=== PATIENT | male | born 1945 | race Two or more races ===

== ENCOUNTER 2022-11-06 23:22 | Inpatient (IN) | payer OTHER ==
[~2022-11-06] VITALS: Ht 177.8 cm; Wt 95.3 kg
--- NOTE | 2022-11-06 23:30 | NUR ---
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 Pain at right and left lumbar area radiating to back rated as 8/10.
--- NOTE | 2022-11-06 23:59 | NUR ---
Unable to provide urine sample at the moment.
--- NOTE | 2022-11-07 00:02 | NUR ---
Phleb at bedside to draw to blood.
[2022-11-07 00:18] LABS: BASOPHILS # (AUTO) 0.1 K/uL (0.0-0.2); BASOPHILS % (AUTO) 0.5 % (0.0-2.0); EOSINOPHILS % (AUTO) 16.4 % (0.0-6.0); HEMATOCRIT 53 % (39-51); HEMOGLOBIN 16.9 g/dL (13.5-17.5); LYMPHOCYTES # (AUTO) 0.7 K/uL (0.8-4.8); LYMPHOCYTES % (AUTO) 3.8 % (20.0-44.0); MEAN CORPUSCULAR HGB CONC 32 g/dl (31.0-36.0); MEAN CORPUSCULAR VOLUME 95 fL (80-96); MONOCYTES # (AUTO) 0.3 K/uL (0.1-1.30); MONOCYTES % (AUTO) 1.5 % (2.0-12.0); NEUTROPHILS # (AUTO) 14.4 K/uL (1.8-8.9); NEUTROPHILS % (AUTO) 77.8 % (43.0-81.0); PLATELET COUNT (AUTO) 394 K/uL (150-450); RED BLOOD CELL COUNT(AUTO) 5.58 MIL/uL (4.5-6.0); WHITE BLOOD COUNT (AUTO) 18.5 K/uL (4.3-11.0)
[2022-11-07 00:26] LABS: CALCIUM, SERUM 8.7 mg/dL (8.5-10.1); CARBON DIOXIDE 26 mmol/L (21-32); CHLORIDE 101 mmol/L (98-107); CREATININE 2.2 mg/dL (0.6-1.3); GLUCOSE 230 mg/dL (74-106); POTASSIUM 4.8 mmol/L (3.5-5.1); SODIUM SERUM 136 mmol/L (136-145); UREA NITROGEN, BLOOD 42 mg/dL (7-18)
[2022-11-07 00:33] LABS: ALANINE AMINOTRANSFERASE 158 U/L (12-78); ALBUMIN 3.2 g/dL (3.4-5.0); ALKALINE PHOSPHATASE 126 U/L (46-116); ASPARTATE AMINOTRANSFERASE 273 U/L (15-37); BILIRUBIN,DIRECT 1.1 mg/dL (0.0-0.2); BILIRUBIN,TOTAL 1.5 mg/dL (0.2-1.0); LIPASE 371 U/L (73-393)
--- NOTE | 2022-11-07 04:50 | NUR ---
bladder scan reading: >999. result relayed to to . ordered to insert avina cath.
[2022-11-07] MEDS ORDERED: LIDOCAINE 2% JEL UROJET 10 ML MM ONE (04:54)
--- NOTE | 2022-11-07 05:12 | NUR ---
urine output noted @ 1800ml. md aware
--- NOTE | 2022-11-07 05:12 | NUR ---
urine collected and sent to lab
[2022-11-07 05:46] LABS: BILIRUBIN,URINE NEGATIVE (NEGATIVE); COLOR,URINE YELLOW (YELLOW); LEUKOCYTE ESTERASE ,URINE 1+ (NEGATIVE); NITRITE, URINE NEGATIVE (NEGATIVE); PROTEIN,URINE NEGATIVE (NEGATIVE); UGLUCOSE NEGATIVE (NEGATIVE)
[2022-11-07 05:51] LABS: BACTERIA,URINE Few /HPF (None Seen); SQUAMOUS EPITHELIAL CELL,UR Few /HPF (None Seen)
[2022-11-07] MEDS ORDERED: CEFTRIAXONE 1GM BAG (ER ONLY) 50 ML IV ONE (06:11)
[2022-11-07] MEDS ORDERED: CEFTRIAXONE 1GM BAG (ER ONLY) 1 GM/50 ML PIGGYBACK IV ONE (06:30)
--- NOTE | 2022-11-07 06:32 | NUR ---
covid swab done and sent to lab
--- NOTE | 2022-11-07 06:39 | NUR ---
Saline Lock at R hand G20.
--- NOTE | 2022-11-07 06:40 | NUR ---
Blood culture specimen collected and sent to lab.
--- NOTE | 2022-11-07 07:15 | NUR ---
I INFORMED THE PT ABOUT ADMISSION STATUS TO THE HOSPITAL. PT VERBALIZES UNDERSTANDING. PT DENIES PAIN. PT IS CONNECTED TO MONITOR. SAFETY PRECAUTION IN PLACE.
--- NOTE | 2022-11-07 08:24 | NUR ---
BED 304-2. ADMITTING MADE AWARE.
--- NOTE | 2022-11-07 08:32 | NUR ---
REPORT GIVEN TO MONTSE ROSE FOR CONTINUITY OF CARE.
--- NOTE | 2022-11-07 08:43 | NUR ---
PT TRANSFERRED TO 3RD FLOOR VIA [facility].
[2022-11-07] MEDS ORDERED: OXYC15TA2 PO ×2 (09:17)
[2022-11-07] MEDS ORDERED: DULO60CA64 PO (09:17)
[2022-11-07] MEDS ORDERED: ATEN50TA PO (09:17)
[2022-11-07] MEDS ORDERED: SIMV-49 PO (09:17)
[2022-11-07] MEDS ORDERED: HYDR12.55 PO (09:17)
[2022-11-07] MEDS ORDERED: ESCI10TA PO (09:17)
[2022-11-07] MEDS ORDERED: GABA300C PO ×2 (09:17)
[2022-11-07] MEDS ORDERED: GLIP5TAB13 PO (09:17)
[2022-11-07 09:18] VITALS: BP 133/72
[2022-11-07] MEDS ORDERED: CLOP75TA15 PO (09:18)
--- NOTE | 2022-11-07 09:45 | NUR ---
RN ADMITTING NOTE ADMITTED THIS 77 Y/O MALE PATIENT FROM ER, CAME TO THE UNIT @0850, TRANSPORTED VIA GURNEY ACCOMPANIED BY ER STAFF HUBER. PATIENT IS AWAKE, A/O X4, VERBALLY RESPONSIVE AND ABLE TO MAKE NEEDS KNOWN. NO SIGNS OF ACUTE DISTRESS NOTED. ON ROOM AIR TOLERATING WELL. DENIES DIFFICULTY BREATHING, BREATHING IS EVEN AND UNLABORED. DENIES ANY ABDOMINAL PAIN AT THIS TIME. NOTED WITH F/C INTACT, DRAINING CLEAR PAULINA COLORED URINE VIA GRAVITY. VITAL SIGNS TAKEN,STABLE. BODY ASSESSMENT DONE. NOTED WITH SCAB ON LOWER BACK, BLANCHABLE REDNESS ON SACRAL AREA, REDNESS ON RIGHT HEEL AND DRYNESS ON BILATERAL FEET. ROUTINE ADMISSION CARE PROVIDED. ORIENTED PATIENT TO ROOM, ROOMMATE AND STAFF. SAFETY MEASURE IN PLACE, BED IN LOW AND LOCKED POSITION, SIDE RAILS UP X2, CALL LIGHT PLACED WITHIN EASY REACH. WILL CONTINUE TO MONITOR PATIENT.
[2022-11-07] MEDS ORDERED: MAGNESIUM HYDROXIDE 30 ML UDC PO PRN (10:30)
[2022-11-07] MEDS ORDERED: GABAPENTIN 300 MG CAPSULE PO PRN (10:30)
[2022-11-07] MEDS ORDERED: MAG HYDROX/AL HYDROX/SIMETH 30 ML UDC PO PRN (10:30)
[2022-11-07] MEDS ORDERED: HYDROMORPHONE INJ 2 MG/ML DISP.SYRIN IV PRN (10:30)
[2022-11-07] MEDS ORDERED: Z GUARD REMEDY 4 OZ OINT TP PRN (10:30)
[2022-11-07] MEDS: IV NS 0.9% 1,000 ML IV PRN (11:16)
[2022-11-07] MEDS: CEFTRIAXONE 1 G in IV D5W 50 ML IV SCH (11:21)
[2022-11-07] MEDS ORDERED: oxyCODONE HCL SR 10MG TAB.SR.12H PO SCH (11:21)
[2022-11-07] MEDS: ENOXAPARIN SODIUM 30 MG/0.3 ML DISP.SYRIN SQ SCH (11:26)
[2022-11-07] MEDS: GABAPENTIN 300 MG CAPSULE PO SCH ×2 (12:09→16:42)
[2022-11-07] MEDS: ATENOLOL 50 MG TABLET PO SCH (16:42)
[2022-11-07 18:11] VITALS: BP 109/59
--- NOTE | 2022-11-07 18:45 | NUR ---
RN CLOSING NOTE PATIENT RESTING IN BED, NO SIGNS OF ACUTE DISTRESS NOTED. REMAINS STABLE ON ROOM AIR. NO SOB NOTED, BREATHING EVEN AND UNLABORED. IV ACCESS ON RIGHT HAND #20G, INTACT AND PATENT, WITH NS @ 75ML/HR INFUSING WELL. F/C INTACT, DRAINING CLEAR PAULINA URINE. F/C CARE PROVIDED. ALL DUE MEDS GIVEN. SAFETY MEASURE MAINTAINED. BED IN LOW AND LOCKED POSITION, SIDE RAILS UP X2, CALL LIGHT PLACED WITHIN EASY REACH. WILL CONTINUE TO MONITOR PATIENT.
--- NOTE | 2022-11-07 19:50 | NUR ---
RN OPENING NOTE PATIENT ASLEEP IN BED. AT BEDSIDE. A/OX4. NO S/S OF DISTRESS, BREATHING WITHOUT DIFFICULTY ON 2L NC. LAC #18 SL INTACT AND PATENT. TELE READS SR 72. SAFETY MEASURES IN PLACE: BED LOCKED AND IN LOWEST POSITION, SEMI-NICHOLSON'S, RAILS UP X2, CALL PINEDA WITHIN REACH. WILL CONTINUE TO MONITOR PATIENT.
--- NOTE | 2022-11-07 19:54 | NUR ---
RN OPENING NOTE PATIENT AWAKE IN BED. A/OX4. NO S/S OF DISTRESS, BREATHING WITHOUT DIFFICULTY ON ROOM AIR. R-HAND #20 INTACT AND PATENT W/ NS 75ML/HR. SAFETY MEASURES IN PLACE: BED LOCKED AND IN LOWEST POSITION, SEMI-NICHOLSON'S, RAILS UP X2, CALL PINEDA WITHIN REACH. WILL CONTINUE TO MONITOR PATIENT.
[2022-11-07 20:00] VITALS: BP 132/61
[2022-11-07] MEDS: oxyCODONE HCL SR 10MG TAB.SR.12H PO SCH (21:23)
[2022-11-08] MEDS: IV NS 0.9% 1,000 ML IV PRN ×2 (03:21→23:45)
[2022-11-08 05:43] LABS: BASOPHILS % (AUTO) 0.2 % (0.0-2.0); EOSINOPHILS % (AUTO) 1.8 % (0.0-6.0); HEMATOCRIT 46 % (39-51); LYMPHOCYTES # (AUTO) 1.2 K/uL (0.8-4.8); LYMPHOCYTES % (AUTO) 9.3 % (20.0-44.0); MEAN CORPUSCULAR HGB CONC 33 g/dl (31.0-36.0); MEAN CORPUSCULAR VOLUME 93 fL (80-96); MONOCYTES # (AUTO) 2.3 K/uL (0.1-1.30); MONOCYTES % (AUTO) 17.6 % (2.0-12.0); NEUTROPHILS # (AUTO) 9.1 K/uL (1.8-8.9); NEUTROPHILS % (AUTO) 71.1 % (43.0-81.0); PLATELET COUNT (AUTO) 325 K/uL (150-450); RED BLOOD CELL COUNT(AUTO) 4.95 MIL/uL (4.5-6.0); WHITE BLOOD COUNT (AUTO) 12.8 K/uL (4.3-11.0)
[2022-11-08 06:13] LABS: CALCIUM, SERUM 8.5 mg/dL (8.5-10.1); CARBON DIOXIDE 28 mmol/L (21-32); CHLORIDE 104 mmol/L (98-107); CREATININE 1.8 mg/dL (0.6-1.3); GLUCOSE 130 mg/dL (74-106); PHOSPHORUS 2.9 mg/dL (2.5-4.9); POTASSIUM 3.6 mmol/L (3.5-5.1); SODIUM SERUM 138 mmol/L (136-145); UREA NITROGEN, BLOOD 32 mg/dL (7-18)
[2022-11-08 06:46] LABS: MAGNESIUM 1.7 mg/dL (1.8-2.4)
[2022-11-08 07:00] VITALS: BP_SYST 105; BP_SYST 146; BP_DIAS 59; BP_DIAS 68
--- NOTE | 2022-11-08 07:01 | NUR ---
RN CLOSING NOTE PATIENT ASLEEP IN BED. A/OX4. NO S/S OF DISTRESS, BREATHING WITHOUT DIFFICULTY ON ROOM AIR. R-HAND #20 INTACT AND PATENT W/ NS 75ML/HR. SAFETY MEASURES IN PLACE: BED LOCKED AND AT LOWEST POSITION, LOW-FOWLERS, RAILS UP X2, CALL PINEDA WITHIN REACH. WILL ENDORSE TO NEXT SHIFT FOR MARYLOU.
--- NOTE | 2022-11-08 07:15 | NUR ---
MS RN OPENING NOTES RECEIVED PATIENT AWAKE IN BED, ON ROOM AIR. A/Ox4, ABLE TO MAKE NEEDS KNOWN. NO S/S OF RESPIRATORY DISTRESS. PATIENT HAS NO C/O OF PAIN OR DISCOMFORT. PATIENT IV ACCESS R HAND #20G RUNNING NS @75 ML/HR. INTACT AND PATENT. PATIENT HAS FC DRAINING YELLOW URINE. AMB WITH ASSIST. CONTINENT. SKIN ISSUES: LOWER BACK SCAB, SACRAL REDNESS, R HEEL REDNESS. SAFETY MEASURES IN PLACE: BED LOCKED AND IN LOWEST POSITION, SIDE RAILS UPx2, HOB ELEVATED, CALL LIGHT WITHIN REACH. WILL CONTINUE TO MONITOR.
[2022-11-08] MEDS: GABAPENTIN 300 MG CAPSULE PO SCH ×3 (08:42→16:15)
[2022-11-08] MEDS: HYDROCHLOROTHIAZIDE 25 MG TABLET PO SCH (08:43)
[2022-11-08] MEDS: ESCITALOPRAM OXALATE (10 MG) 10 MG TABLET PO SCH (08:43)
[2022-11-08] MEDS: oxyCODONE HCL SR 10MG TAB.SR.12H PO SCH ×3 (08:43→20:32)
[2022-11-08] MEDS: SIMVASTATIN 20 MG TABLET PO SCH (08:43)
[2022-11-08] MEDS: CLOPIDOGREL BISULFATE 75 MG TABLET PO SCH (08:44)
[2022-11-08] MEDS: ATENOLOL 50 MG TABLET PO SCH ×2 (08:44→16:15)
[2022-11-08] MEDS: DULOXETINE HCL 30 MG CAPSULE.DR PO SCH (08:44)
[2022-11-08] MEDS: ENOXAPARIN SODIUM 30 MG/0.3 ML DISP.SYRIN SQ SCH (10:41)
[2022-11-08] MEDS: CEFTRIAXONE 1 G in IV D5W 50 ML IV SCH (10:42)
[2022-11-08 11:25] LABS: EOSINOPHILS % (MANUAL) 2 % (0-4); LYMPHOCYTES % (MANUAL) 8 % (16-48); MONOCYTES % (MANUAL) 20 % (0-11.0); NEUTROPHILS % (MANUAL) 70 (42-76)
[2022-11-08] MEDS ORDERED: MAGNESIUM OXIDE 400 MG TABLET PO ONE (12:00)
--- NOTE | 2022-11-08 13:14 | NUR ---
RN NOTES PATIENT GIVEN ROUTINE PAIN MEDICATION, OCCASIONAL GRIMACE OF PAIN NOTED WHEN MOVING, HOWEVER, PATIENT SAYS PAIN IS MANAGEABLE. ABLE TO AMBULATE WITH STANDBY ASSIST TO THE BATHROOM AND HAVE A BOWEL MOVEMENT. WILL CONTINUE TO MONITOR.
--- NOTE | 2022-11-08 15:40 | NUR ---
RN NOTES PATIENT R HAND IV INFILTRATED, REMOVED AND NEW LINE STARTED ON L FA #20G, INTACT AND PATENT RUNNING NS @75 ML/HR. WILL CONTINUE TO MONITOR.
[2022-11-08 16:00] VITALS: BP 126/69
--- NOTE | 2022-11-08 18:46 | NUR ---
MS RN CLOSING NOTES PATIENT AWAKE IN BED, STABLE ON ROOM AIR. A/Ox4, ABLE TO MAKE NEEDS KNOWN. NO S/S OF RESPIRATORY DISTRESS. PATIENT HAS NO C/O OF PAIN OR DISCOMFORT. PATIENT IV ACCESS LFA #20G RUNNING NS @75 ML/HR. INTACT AND PATENT. PATIENT HAS FC DRAINING YELLOW URINE. AMB WITH ASSIST. CONTINENT. SKIN ISSUES: LOWER BACK SCAB, SACRAL REDNESS, R HEEL REDNESS. ALL PRESCRIBED MEDICATION ADMINISTERED. SAFETY MEASURES MAINTAINED: BED LOCKED AND IN LOWEST POSITION, SIDE RAILS UPx2, HOB ELEVATED, CALL LIGHT WITHIN REACH. WILL ENDORSE TO NEXT SHIFT ANY MARYLOU.
--- NOTE | 2022-11-08 19:35 | NUR ---
MS RN OPENING NOTES - RECEIVED PATIENT IN BED SLEEPING, EASY TO AROUSE. A/O X4. BREATHING EVEN AND NON-LABORED ON ROOM AIR. NOT IN APPARENT DISTRESS. DENIES PAIN/SOB/ AT THIS TIME. HAS LEFT FOREARM IV ACCESS #20G WITH NS RUNNING AT 75 ML/HR. NO S/S OF INFILTRATION NOTED. HAS INDWELLING KING CATHETER DRAINING CLEAR PAULINA URINE TO BAG BY GRAVITY. SAFETY PRECAUTIONS IN PLACE: BED LOCKED AND IN LOW POSITION, SIDE RAILS UP X2, CALL LIGHT WITHIN REACH. WILL CONTINUE POC.
[2022-11-08 20:00] VITALS: BP 114/53
[2022-11-08 20:58] VITALS: BP 114/53
[2022-11-09 06:04] LABS: BASOPHILS % (AUTO) 0.3 % (0.0-2.0); EOSINOPHILS % (AUTO) 2.7 % (0.0-6.0); HEMATOCRIT 45 % (39-51); HEMOGLOBIN 14.7 g/dL (13.5-17.5); LYMPHOCYTES # (AUTO) 1.7 K/uL (0.8-4.8); LYMPHOCYTES % (AUTO) 16.1 % (20.0-44.0); MEAN CORPUSCULAR HGB CONC 32 g/dl (31.0-36.0); MEAN CORPUSCULAR VOLUME 93 fL (80-96); MONOCYTES # (AUTO) 1.4 K/uL (0.1-1.30); MONOCYTES % (AUTO) 13.3 % (2.0-12.0); NEUTROPHILS # (AUTO) 7.3 K/uL (1.8-8.9); NEUTROPHILS % (AUTO) 67.6 % (43.0-81.0); PLATELET COUNT (AUTO) 335 K/uL (150-450); RED BLOOD CELL COUNT(AUTO) 4.84 MIL/uL (4.5-6.0); WHITE BLOOD COUNT (AUTO) 10.7 K/uL (4.3-11.0)
[2022-11-09 06:26] LABS: CALCIUM, SERUM 8.9 mg/dL (8.5-10.1); CARBON DIOXIDE 27 mmol/L (21-32); CHLORIDE 101 mmol/L (98-107); CREATININE 1.7 mg/dL (0.6-1.3); GLUCOSE 130 mg/dL (74-106); MAGNESIUM 1.8 mg/dL (1.8-2.4); POTASSIUM 3.6 mmol/L (3.5-5.1); SODIUM SERUM 136 mmol/L (136-145); UREA NITROGEN, BLOOD 30 mg/dL (7-18)
[2022-11-09 07:00] VITALS: BP 123/69
--- NOTE | 2022-11-09 07:04 | NUR ---
MS RN CLOSING NOTES - PATIENT AWAKE, ANXIOUS AND AGITATED BECAUSE HE WAS NOT ABLE TO HAVE A GOOD SLEEP LAST NIGHT. ABLE TO VERBALIZE NEEDS. NO RESPIRATORY OR CARDIAC DISTRESS. NO SOB OR NOTED, TOLERATING ROOM AIR WELL. AFEBRILE. NO C/O PAIN AT THIS TIME. LEFT FOREARM IV ACCESS #20G INTACT, PATENT AND FLUSHING. FC DRAINING CLEAR ORANGE URINE. ALL DUE MEDS GIVEN AND NEEDS ATTENDED. SAFETY PRECAUTIONS MAINTAINED. WILL ENDORSE TO NEXT SHIFT FOR MARYLOU.
[2022-11-09] MEDS: IV NS 0.9% 1,000 ML IV PRN (07:06)
--- NOTE | 2022-11-09 07:28 | NUR ---
RN OPENING NOTE RECEIVED PATIENT IN BED AWAKE, A/O X4, VERBALLY RESPONSIVE, NO SIGNS OF ACUTE DISTRESS NOTED. PATIENT C/O NOT BEING ABLE TO SLEEP AND JUST WANT TO SLEEP RIGHT NOW. IV ACCESS ON LEFT FORE ARM #20G, INTACT AND PATENT. WITH F/C DRAINING ORANGE COLOR URINE VIA GRAVITY. NO C/O PAIN AT THIS TIME. SAFETY MEASURE IN PLACE. BED IN LOW AND LOCKED POSITION, SIDE RAILS UP X2, CALL LIGHT PLACED WITHIN EASY REACH. WILL CONTINUE TO MONITOR PATIENT.
[2022-11-09] MEDS: DULOXETINE HCL 30 MG CAPSULE.DR PO SCH (08:23)
[2022-11-09] MEDS: oxyCODONE HCL SR 10MG TAB.SR.12H PO SCH ×3 (08:23→20:20)
[2022-11-09] MEDS: ATENOLOL 50 MG TABLET PO SCH ×2 (08:24→16:46)
[2022-11-09] MEDS: GABAPENTIN 300 MG CAPSULE PO SCH ×3 (08:24→16:45)
[2022-11-09] MEDS: CLOPIDOGREL BISULFATE 75 MG TABLET PO SCH (08:25)
[2022-11-09] MEDS: HYDROCHLOROTHIAZIDE 25 MG TABLET PO SCH (08:25)
[2022-11-09] MEDS: ESCITALOPRAM OXALATE (10 MG) 10 MG TABLET PO SCH (08:25)
[2022-11-09] MEDS: SIMVASTATIN 20 MG TABLET PO SCH (08:25)
[2022-11-09] MEDS: CEFTRIAXONE 1 G in IV D5W 50 ML IV SCH (10:36)
[2022-11-09] MEDS: ENOXAPARIN SODIUM 30 MG/0.3 ML DISP.SYRIN SQ SCH (10:38)
[2022-11-09 16:00] VITALS: BP 115/69
--- NOTE | 2022-11-09 18:44 | NUR ---
RN CLOSING NOTE PATIENT RESTING IN BED, A/O X4, VERBALLY RESPONSIVE, NO SIGNS OF ACUTE DISTRESS NOTED. IV ACCESS ON LEFT FOREARM #20G, INTACT AND PATENT, WITH NS @75 ML/HR RUNNING. WITH F/C DRAINING CLEAR ORANGE COLORED URINE VIA GRAVITY. NO C/O PAIN AT THIS TIME. ALL DUE MEDS GIVEN, TOLERATED WELL. SAFETY MEASURE MAINTAINED. BED IN LOW AND LOCKED POSITION, SIDE RAILS UP X2, CALL LIGHT PLACED WITHIN EASY REACH. WILL ENDORSE TO NEXT SHIFT FOR CONTINUITY OF CARE.
--- NOTE | 2022-11-09 19:42 | NUR ---
MS RN OPENING NOTES - RECEIVED PATIENT RESTING IN BED. A/O X4. BREATHING EVEN AND NON-LABORED ON ROOM AIR. NOT IN APPARENT DISTRESS. NO C/O PAIN OR DISCOMFORT AT THIS TIME. HAS THE FF IV ACCESS: LEFT FOREARM #20G AND SALINE LOCKED, AND RIGHT FOREARM #20G WITH NS RUNNING AT 75 ML/HR. NO S/S OF INFILTRATION NOTED. HAS INDWELLING KING CATHETER DRAINING CLEAR PAULINA URINE TO BAG BY GRAVITY. SAFETY PRECAUTIONS IN PLACE: BED LOCKED AND IN LOW POSITION, SIDE RAILS UP X2, CALL LIGHT WITHIN REACH. WILL CONTINUE POC.
[2022-11-09 20:23] VITALS: BP 132/72
[2022-11-09 20:32] VITALS: BP 132/72
[2022-11-10] MEDS: IV NS 0.9% 1,000 ML IV PRN ×2 (05:27→18:17)
--- NOTE | 2022-11-10 06:38 | NUR ---
MS RN CLOSING NOTES - PATIENT AWAKE IN BED, ABLE TO VERBALIZE NEEDS. NO ACUTE DISTRESS AND SLEPT THROUGHOUT THE NIGHT. NO SOB OR NOTED. AFEBRILE. DENIES PAIN AT THIS TIME. RIGHT FOREARM IV ACCESS #20G INTACT, PATENT AND FLUSHING. BED BATH AND ORAL CARE RENDERED. IFC DRAINING CLEAR DARK YELLOW URINE. NO SEDIMENTS OR HEMATURIA NOTED. ENCOURAGED INCREASE FLUID INTAKE. ALL DUE MEDS GIVEN AND NEEDS ATTENDED. PATIENT IS A LITTLE ANXIOUS ABOUT HIS HEALTH AND HOPEFUL THAT HE LIVES. EXPLAINED DISCHARGE PLANNING, VERBALIZED UNDERSTANDING. SAFETY PRECAUTIONS MAINTAINED. WILL ENDORSE TO NEXT SHIFT FOR MARYLOU.
[2022-11-10 07:00] VITALS: BP 136/74
--- NOTE | 2022-11-10 07:35 | NUR ---
MS RN OPENING NOTES - RECEIVED PATIENT IN BED AWAKE . A/O X4. ON ROOM AIR WITH NO SOB OR DISTRESS NOTED . NO C/O PAIN OR DISCOMFORT AT THIS TIME. HAS THE FF IV ACCESS: IV ACCESS RIGHT FOREARM #20G WITH NS RUNNING AT 75 ML/HR . HAS INDWELLING KING CATHETER DRAINING CLEAR PAULINA URINE TO BAG BY GRAVITY. SAFETY PRECAUTIONS IN PLACE: BED LOCKED AND IN LOW POSITION, SIDE RAILS UP X2, CALL LIGHT WITHIN REACH. WILL CONTINUE POC.
[2022-11-10] MEDS ORDERED: CEFT1FRO2 IV (08:35)
[2022-11-10] MEDS: DULOXETINE HCL 30 MG CAPSULE.DR PO SCH (08:40)
[2022-11-10] MEDS: GABAPENTIN 300 MG CAPSULE PO SCH ×3 (08:40→17:15)
[2022-11-10] MEDS: HYDROCHLOROTHIAZIDE 25 MG TABLET PO SCH (08:41)
[2022-11-10] MEDS: ESCITALOPRAM OXALATE (10 MG) 10 MG TABLET PO SCH (08:41)
[2022-11-10] MEDS: CLOPIDOGREL BISULFATE 75 MG TABLET PO SCH (08:42)
[2022-11-10] MEDS: ATENOLOL 50 MG TABLET PO SCH ×2 (08:42→17:16)
[2022-11-10] MEDS: oxyCODONE HCL SR 10MG TAB.SR.12H PO SCH ×3 (08:42→21:02)
[2022-11-10] MEDS: SIMVASTATIN 20 MG TABLET PO SCH (08:42)
[2022-11-10 09:02] LABS: BASOPHILS # (AUTO) 0.1 K/uL (0.0-0.2); BASOPHILS % (AUTO) 0.5 % (0.0-2.0); EOSINOPHILS % (AUTO) 1.9 % (0.0-6.0); HEMATOCRIT 46 % (39-51); HEMOGLOBIN 15.3 g/dL (13.5-17.5); LYMPHOCYTES # (AUTO) 1.7 K/uL (0.8-4.8); LYMPHOCYTES % (AUTO) 16.6 % (20.0-44.0); MEAN CORPUSCULAR HGB CONC 33 g/dl (31.0-36.0); MEAN CORPUSCULAR VOLUME 93 fL (80-96); MONOCYTES # (AUTO) 1.4 K/uL (0.1-1.30); MONOCYTES % (AUTO) 12.9 % (2.0-12.0); NEUTROPHILS # (AUTO) 7.2 K/uL (1.8-8.9); NEUTROPHILS % (AUTO) 68.1 % (43.0-81.0); PLATELET COUNT (AUTO) 341 K/uL (150-450); RED BLOOD CELL COUNT(AUTO) 4.98 MIL/uL (4.5-6.0); WHITE BLOOD COUNT (AUTO) 10.5 K/uL (4.3-11.0)
[2022-11-10] MEDS: ENOXAPARIN SODIUM 30 MG/0.3 ML DISP.SYRIN SQ SCH (10:57)
[2022-11-10] MEDS: CEFTRIAXONE 1 G in IV D5W 50 ML IV SCH (10:58)
[2022-11-10 11:38] LABS: CALCIUM, SERUM 8.7 mg/dL (8.5-10.1); CARBON DIOXIDE 23 mmol/L (21-32); CHLORIDE 101 mmol/L (98-107); CREATININE 1.6 mg/dL (0.6-1.3); GLUCOSE 166 mg/dL (74-106); POTASSIUM 3.7 mmol/L (3.5-5.1); SODIUM SERUM 135 mmol/L (136-145); UREA NITROGEN, BLOOD 27 mg/dL (7-18)
[2022-11-10 16:00] VITALS: BP 91/63
--- NOTE | 2022-11-10 18:22 | NUR ---
MS RN CLOSING NOTES - PATIENT IN BED AWAKE . A/O X4. ON ROOM AIR WITH NO SOB OR DISTRESS NOTED . NO C/O PAIN OR DISCOMFORT AT THIS TIME. IV ACCESS RIGHT FOREARM #20G WITH NS RUNNING AT 75 ML/HR . PATIENT FOR DISCHARGE TO SNF AND WAITING FOR AUTH AND WAS CANCELLED AND PLAN IS TO GO HOME AND INSURANCE WILL ARRANGE HOME HEALTH FOR FOLOW UP AND IV ATB , KING CATHETER REMOVED , ALL DUE MEDS GIVEN AND ROUTINE PAIN MEDS GIVEN AND WITH HELP . SAFETY PRECAUTIONS IN PLACE: BED LOCKED AND IN LOW POSITION, SIDE RAILS UP X2, CALL LIGHT WITHIN REACH AND ENDORSED TO NEXT SHIFT
--- NOTE | 2022-11-10 19:26 | NUR ---
RN OPENING NOTES; RECEIVED PT IN BED AAOX4 ABLE TO MAKE NEEDS KNOWN,ON RM AIR ARTEMIO WELL SATTING 98%,NO SIGN SOB/DISTRESS NOTED,NO COMPLAIN OF PAIN/DISCOMFORT AT THIS TIME,IV ACCESS RFA 20G WITH NS 75ML/HR INFUSING WELL,SAFETY MEASURE IN PLACE,CALL LIGHT WITHIN REACH,WILL CONTINUE TO MONITOR.
[2022-11-10 20:00] VITALS: BP 116/55
[2022-11-11 05:45] LABS: BASOPHILS # (AUTO) 0.1 K/uL (0.0-0.2); BASOPHILS % (AUTO) 0.5 % (0.0-2.0); EOSINOPHILS % (AUTO) 2.7 % (0.0-6.0); HEMATOCRIT 51 % (39-51); HEMOGLOBIN 16.1 g/dL (13.5-17.5); LYMPHOCYTES # (AUTO) 2.4 K/uL (0.8-4.8); LYMPHOCYTES % (AUTO) 20.1 % (20.0-44.0); MEAN CORPUSCULAR HGB CONC 32 g/dl (31.0-36.0); MEAN CORPUSCULAR VOLUME 97 fL (80-96); MONOCYTES # (AUTO) 2.1 K/uL (0.1-1.30); MONOCYTES % (AUTO) 17.3 % (2.0-12.0); NEUTROPHILS # (AUTO) 7.1 K/uL (1.8-8.9); NEUTROPHILS % (AUTO) 59.4 % (43.0-81.0); PLATELET COUNT (AUTO) 350 K/uL (150-450); RED BLOOD CELL COUNT(AUTO) 5.31 MIL/uL (4.5-6.0); WHITE BLOOD COUNT (AUTO) 11.9 K/uL (4.3-11.0)
[2022-11-11 05:55] LABS: CALCIUM, SERUM 8.9 mg/dL (8.5-10.1); CARBON DIOXIDE 25 mmol/L (21-32); CHLORIDE 102 mmol/L (98-107); CREATININE 1.4 mg/dL (0.6-1.3); GLUCOSE 133 mg/dL (74-106); SODIUM SERUM 133 mmol/L (136-145); UREA NITROGEN, BLOOD 28 mg/dL (7-18)
--- NOTE | 2022-11-11 06:19 | NUR ---
RN CLOSING NOTES; PATIENT IN BED AAOX4 ABLE TO MAKE NEEDS KNOWN,ON RM AIR ARTEMIO WELL SATTING 97.8%,NO SIGN SOB/DISTRESS NOTED,PT HAS ROUTINED OXYCODONE,NO COMPLAINED OF PAIN DURING SHIFT,DUE MEDS GIVEN ORDER,ALL NEEDS ATTENDED,IV ACCESS RFA 20G WITH NS 75ML/HR INFUSING WELL,KEPT PT CLEANED AND DRY AT ALL TIME,SAFETY MEASURE IN PLACE,CALL LIGHT WITHIN REACH,WILL ENDORSED TO NEXT SHIFT.
[2022-11-11 07:00] VITALS: BP 130/63
--- NOTE | 2022-11-11 07:20 | NUR ---
MS RN OPENING NOTES RECEIVED PATIENT AWAKE IN BED IN NO ACUTE SIGNS OF DISTRESS. A/O X4. ABLE TO VERBALIZED NEEDS. ON ROOM AIR, TOLERATING WELL, BREATHING EVEN AND NON-LABORED. IV ACCESS AND RIGHT FOREARM #20G INTACT WITH NS RUNNING AT 75 ML/HR, NO S/S OF INFILTRATION NOTED. SAFETY PRECAUTIONS IN PLACE: BED LOCKED AND IN LOW POSITION, SIDE RAILS UP X2, CALL LIGHT WITHIN REACH AND TRAY TABLE W/I EASY REACH OF PT. WILL CONTINUE POC.
[2022-11-11] MEDS: CLOPIDOGREL BISULFATE 75 MG TABLET PO SCH (08:07)
[2022-11-11] MEDS: oxyCODONE HCL SR 10MG TAB.SR.12H PO SCH ×3 (08:08→21:35)
[2022-11-11] MEDS: ESCITALOPRAM OXALATE (10 MG) 10 MG TABLET PO SCH (08:08)
[2022-11-11] MEDS: ATENOLOL 50 MG TABLET PO SCH ×2 (08:09→17:48)
[2022-11-11] MEDS: SIMVASTATIN 20 MG TABLET PO SCH (08:09)
[2022-11-11] MEDS: GABAPENTIN 300 MG CAPSULE PO SCH ×3 (08:09→17:48)
[2022-11-11] MEDS: HYDROCHLOROTHIAZIDE 25 MG TABLET PO SCH (08:10)
[2022-11-11] MEDS: DULOXETINE HCL 30 MG CAPSULE.DR PO SCH (08:11)
[2022-11-11] MEDS ORDERED: TAMS-12 PO (08:47)
[2022-11-11] MEDS: TAMSULOSIN 0.4 MG CAP.SR.24H PO SCH ×2 (09:18→21:35)
--- NOTE | 2022-11-11 09:32 | NUR ---
RN NOTES PATIENT COMPLAINED THAT HE HASN'T PEED SINCE KING WAS REMOVED YESTERDAY. BLADDER SCAN DONE, NOTED WITH 990ML RESIDUALS. DR BUSBY SEEN PT WITH ORDER TO INSERT KING CATHETER. KING INSERTED WITHOUT PROBLEM AND WITH 950ML OUTPUT AT THIS TIME. WILL CONTINUE TO MONITOR.
--- NOTE | 2022-11-11 10:20 | NUR ---
ms rn received on bed, awake,alert,oriented x4, not in any form of distress respirations even and unlabored ,no sob noted, lungs are clear,abdomen soft,positive bowel sounds,denies pain at this time,came in w/ obstructive uropathy, avina to gravity w/ yellowish urine output,will monitor patient.
[2022-11-11] MEDS: ENOXAPARIN SODIUM 30 MG/0.3 ML DISP.SYRIN SQ SCH (11:22)
[2022-11-11] MEDS: CEFTRIAXONE 1 G in IV D5W 50 ML IV SCH (11:23)
--- NOTE | 2022-11-11 11:38 | NUR ---
RN NOTES ENDORSED MARYLOU TO ROSE NATARAJAN WHO WILL TAKE OVER CARE UP TO THIS TIME.
[2022-11-11 16:00] VITALS: BP 120/78
--- NOTE | 2022-11-11 18:28 | NUR ---
MS RN ON BED, ALL NEEDS ATTENDED, EATING JOHN,NO DISTRESS NOTED.
--- NOTE | 2022-11-11 19:35 | NUR ---
MS RN NOTES RECEIVED LYING ON BED SLEEPING,AROUSABLE TO VERBAL STIMULI,A/O X4,BREATHING REGULAR,NOT IN ANY FORM OF DISTRESS,KING CATH IN PLACE DRAINS TEA COLORED URINE,SALINE LOCK RIGHT FOREARM INTACT AND PATENT.CLAIMED ITS HOT AND HE DOESNT WANT TO PUT ON HIS HOSPITAL GOWN.WILL CONTINUE TO MONITOR STATUS,CALL LIGHT IN REACH,NEEDS ANTICIPATED.
[2022-11-11 20:00] VITALS: BP 111/54
[2022-11-12 04:33] LABS: BASOPHILS % (MANUAL) 0 % (0.0-2.0); EOSINOPHILS % (MANUAL) 2 % (0-4); LYMPHOCYTES % (MANUAL) 19 % (16-48); MONOCYTES % (MANUAL) 16 % (0-11.0); NEUTROPHILS % (MANUAL) 63 (42-76)
--- NOTE | 2022-11-12 06:49 | NUR ---
MS RN NOTES SLEEP WELL AT NIGHT,HAD LARGE BOWEL MOVEMENT,CLEANED AND KEPT SHIRLEY.PAIN IMPROVED.NO DISTRESS.CALL LIGHT IN REACH,NEEDS ATTENDED.
--- NOTE | 2022-11-12 07:25 | NUR ---
MS RN OPENING NOTES PATIENT IN BED ALERT ORIENTED X 4, NO ACUTE DISTRESS NOTED, BREATHING UNLABORED. NO SOB NOTED. IV ACCESS PATENT AND INTACT, NO REDNESS, NO SWELLING NOTED. KING CATHETER PATENT AND INTACT DRAINING PAULINA URINE. SAFETY MEASURES IN PLACE, CALL LIGHT WITHIN REACH. WILL CONTINUE TO MONITOR ACCORDINGLY
[2022-11-12 08:00] VITALS: BP 117/57
[2022-11-12] MEDS: ATENOLOL 50 MG TABLET PO SCH ×2 (08:40→16:39)
[2022-11-12] MEDS: HYDROCHLOROTHIAZIDE 25 MG TABLET PO SCH (08:41)
[2022-11-12] MEDS: SIMVASTATIN 20 MG TABLET PO SCH (08:41)
[2022-11-12] MEDS: DULOXETINE HCL 30 MG CAPSULE.DR PO SCH (08:42)
[2022-11-12] MEDS: GABAPENTIN 300 MG CAPSULE PO SCH ×3 (08:43→16:38)
[2022-11-12] MEDS: CLOPIDOGREL BISULFATE 75 MG TABLET PO SCH (08:43)
[2022-11-12] MEDS: ESCITALOPRAM OXALATE (10 MG) 10 MG TABLET PO SCH (08:44)
[2022-11-12] MEDS: oxyCODONE HCL SR 10MG TAB.SR.12H PO SCH ×3 (08:45→21:08)
[2022-11-12] MEDS ORDERED: CEPH500C2 PO (09:18)
[2022-11-12] MEDS: CEFTRIAXONE 1 G in IV D5W 50 ML IV SCH (11:36)
[2022-11-12] MEDS: ENOXAPARIN SODIUM 30 MG/0.3 ML DISP.SYRIN SQ SCH (11:38)
[2022-11-12 16:03] VITALS: BP 128/71
[2022-11-12] MEDS: ONDANSETRON HCL/PF 4 MG/2 ML VIAL IVP PRN (16:38)
--- NOTE | 2022-11-12 18:49 | NUR ---
MS RN CLOSING NOTES PATIENT IN BED ALERT ORIENTED X 4, NO ACUTE DISTRESS NOTED, BREATHING UNLABORED. NO SOB NOTED. IV ACCESS PATENT AND INTACT, NO REDNESS, NO SWELLING NOTED. KING CATHETER PATENT AND INTACT DRAINING PAULINA URINE. NEEDS ATTENDED AND ANTICIPATED. SAFETY MEASURES IN PLACE, CALL LIGHT WITHIN REACH. WILL ENDORSE TO NIGHT NURSE FOR CONTINUITY OF CARE
--- NOTE | 2022-11-12 19:30 | NUR ---
MS RN OPENING NOTES PATIENT IN BED AWAKE, ALERT AND ORIENTED. A/O X 4. ON RA, BREATHING EVEN AND UNLABORED. NO DISTRESS OR SOB NOTED. IV ACCESS RFA #20G, HL PATENT, INTACT AND FLUSHING WELL. KING CATHETER PATENT AND INTACT DRAINING PAULINA URINE. SAFETY MEASURES IN PLACE WITH BED ON LOWEST AND LOCKED POSITION. TRAY AND CALL LIGHT WITHIN EASY REACH. SIDE RAILS UP X 2. WILL CONTINUE TO MONITOR.
[2022-11-12 20:00] VITALS: BP 120/69
[2022-11-12] MEDS: TAMSULOSIN 0.4 MG CAP.SR.24H PO SCH (21:07)
[2022-11-12 22:43] VITALS: BP 120/69
--- NOTE | 2022-11-13 07:15 | NUR ---
MS RN OPENING NOTES RECEIVED PATIENT AWAKE IN BED, A/O X 4. ON ROOM AIR BREATHING WITHOUT ANY DIFFICULTY, NOT IN ANY DISTRESS. IV ACCESS RFA #20G, HL PATENT, INTACT AND FLUSHING WELL. KING CATHETER PATENT AND INTACT DRAINING PAULINA URINE VIA GRAVITY. SAFETY MEASURES IN PLACE WITH BED ON LOWEST AND LOCKED POSITION. SIDE RAILS UP X2, TRAY TABLE AND CALL LIGHT WITHIN EASY REACH. WILL CONTINUE TO MONITOR.
--- NOTE | 2022-11-13 07:22 | NUR ---
MS CLOSING NOTES PATIENT IN BED AWAKE, ALERT AND ORIENTED. A/O X 4. ON RA, BREATHING EVEN AND UNLABORED. NO DISTRESS OR SOB NOTED. IV ACCESS RFA #20G, HL PATENT, INTACT AND FLUSHING WELL. ALL DUE MEDS GIVEN. KING CATHETER PATENT AND INTACT DRAINED 700CC, PAULINA COLORED URINE. SAFETY MEASURES MAINTAINED WITH BED ON LOWEST AND LOCKED POSITION. TRAY AND CALL LIGHT WITHIN EASY REACH. SIDE RAILS UP X 2. WILL ENDORSE TO THE NEXT SHIFT.
[2022-11-13 08:22] VITALS: BP 105/64
[2022-11-13] MEDS: ESCITALOPRAM OXALATE (10 MG) 10 MG TABLET PO SCH (09:24)
[2022-11-13] MEDS: GABAPENTIN 300 MG CAPSULE PO SCH ×3 (09:24→16:50)
[2022-11-13] MEDS: CLOPIDOGREL BISULFATE 75 MG TABLET PO SCH (09:25)
[2022-11-13] MEDS: ATENOLOL 50 MG TABLET PO SCH ×2 (09:25→16:50)
[2022-11-13] MEDS: HYDROCHLOROTHIAZIDE 25 MG TABLET PO SCH (09:25)
[2022-11-13] MEDS: SIMVASTATIN 20 MG TABLET PO SCH (09:26)
[2022-11-13] MEDS: DULOXETINE HCL 30 MG CAPSULE.DR PO SCH (09:26)
[2022-11-13] MEDS: oxyCODONE HCL SR 10MG TAB.SR.12H PO SCH ×3 (09:44→20:44)
[2022-11-13] MEDS: CEFTRIAXONE 1 G in IV D5W 50 ML IV SCH (11:06)
[2022-11-13] MEDS: ENOXAPARIN SODIUM 30 MG/0.3 ML DISP.SYRIN SQ SCH (11:18)
[2022-11-13 12:26] LABS: CALCIUM, SERUM 8.6 mg/dL (8.5-10.1); CARBON DIOXIDE 25 mmol/L (21-32); CHLORIDE 97 mmol/L (98-107); CREATININE 1.7 mg/dL (0.6-1.3); GLUCOSE 246 mg/dL (74-106); POTASSIUM 3.4 mmol/L (3.5-5.1); SODIUM SERUM 130 mmol/L (136-145); UREA NITROGEN, BLOOD 37 mg/dL (7-18)
[2022-11-13 16:48] VITALS: BP 112/62
--- NOTE | 2022-11-13 18:42 | NUR ---
MS RN CLOSING NOTES PATIENT AWAKE LYING IN BED, A/OX4, STILL ON ROOM AIR BREATHING WITHOUT ANY DIFFICULTY, NOT IN ANY FORM OF DISTRESS DISTRESS. STILL WITH IV ACCESS RFA #20G, HL PATENT, INTACT AND FLUSHING WELL. KING CATHETER PATENT AND INTACT DRAINING PAULINA URINE VIA GRAVITY, DRAINED ABOUT 700 ML. SAFETY MEASURES MAINTAINED: BED ON LOWEST AND LOCKED POSITION. SIDE RAILS UP X2, TRAY TABLE AND CALL LIGHT WITHIN EASY REACH. ALL NEEDS MET, ALL DUE MEDS GIVEN. 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
--- NOTE | 2022-11-13 19:30 | NUR ---
MS RN OPENING NOTES RECEIVED PATIENT IN BED AWAKE, A/O X 4. ON RA, BREATHING EVEN AND UNLABORED. NO DISTRESS OR SOB NOTED. IV ACCESS RFA #20G, HL PATENT, INTACT AND FLUSHING WELL. KING CATHETER PATENT AND INTACT DRAINING URINE BY GRAVITY. ALL SAFETY MEASURES IN PLACE WITH BED ON LOWEST AND LOCKED POSITION. TABLE AND CALL LIGHT WITHIN EASY REACH. SIDE RAILS UP X 2. WILL CONTINUE TO MONITOR CLOSELY.
[2022-11-13 20:00] VITALS: BP 98/56
[2022-11-13] MEDS: TAMSULOSIN 0.4 MG CAP.SR.24H PO SCH (21:53)
[2022-11-14 06:03] LABS: BASOPHILS # (AUTO) 0.1 K/uL (0.0-0.2); BASOPHILS % (AUTO) 0.2 % (0.0-2.0); HEMATOCRIT 48 % (39-51); HEMOGLOBIN 15.8 g/dL (13.5-17.5); LYMPHOCYTES # (AUTO) 1.8 K/uL (0.8-4.8); LYMPHOCYTES % (AUTO) 4.2 % (20.0-44.0); MEAN CORPUSCULAR HGB CONC 33 g/dl (31.0-36.0); MEAN CORPUSCULAR VOLUME 92 fL (80-96); MONOCYTES # (AUTO) 4.3 K/uL (0.1-1.30); MONOCYTES % (AUTO) 10.1 % (2.0-12.0); NEUTROPHILS # (AUTO) 36.3 K/uL (1.8-8.9); NEUTROPHILS % (AUTO) 85.5 % (43.0-81.0); PLATELET COUNT (AUTO) 391 K/uL (150-450); RED BLOOD CELL COUNT(AUTO) 5.23 MIL/uL (4.5-6.0)
--- NOTE | 2022-11-14 06:36 | NUR ---
MS RN CLOSING NOTES PATIENT IN BED SLEEPS. OPENS HIS EYES UPON CALLING HIS NAME. A/O X 4. ON RA, BREATHING EVEN AND UNLABORED. NO DISTRESS OR SOB NOTED. IV ACCESS RFA #20G, HL PATENT, INTACT AND FLUSHING WELL. KING CATHETER PATENT AND INTACT DRAINING URINE BY GRAVITY. ALL DUE MEDS GIVEN.ALL SAFETY MEASURES IN PLACE WITH BED ON LOWEST AND LOCKED POSITION. TABLE AND CALL LIGHT WITHIN EASY REACH. SIDE RAILS UP X 2. WILL ENDORSE FOR MARYLOU.
[2022-11-14 07:06] LABS: CALCIUM, SERUM 8.8 mg/dL (8.5-10.1); CARBON DIOXIDE 20 mmol/L (21-32); CHLORIDE 96 mmol/L (98-107); GLUCOSE 250 mg/dL (74-106); POTASSIUM 3.4 mmol/L (3.5-5.1); SODIUM SERUM 130 mmol/L (136-145); UREA NITROGEN, BLOOD 46 mg/dL (7-18)
--- NOTE | 2022-11-14 07:25 | NUR ---
MS RN OPENING NOTES RECEIVED PATIENT AWAKE IN BED, A/O X 4. ON ROOM AIR BREATHING WITHOUT ANY DIFFICULTY, NOT IN ANY DISTRESS. IV ACCESS RFA #20G, HL PATENT, INTACT AND FLUSHING WELL. PAIN CONTROLLED. KING CATHETER PATENT AND INTACT DRAINING PAULINA URINE VIA GRAVITY. SAFETY MEASURES IN PLACE WITH BED ON LOWEST AND LOCKED POSITION. SIDE RAILS UP X2, TRAY TABLE AND CALL LIGHT WITHIN EASY REACH. WILL CONTINUE TO MONITOR.
[2022-11-14 07:28] LABS: WHITE BLOOD COUNT (AUTO) 42.5 K/uL (4.3-11.0)
[2022-11-14 08:01] LABS: LYMPHOCYTES % (MANUAL) 8 % (16-48); MONOCYTES % (MANUAL) 8 % (0-11.0); NEUTROPHILS % (MANUAL) 84 (42-76)
[2022-11-14 08:12] VITALS: BP 106/60
[2022-11-14] MEDS: ATENOLOL 50 MG TABLET PO SCH ×2 (08:40→16:47)
[2022-11-14] MEDS: DULOXETINE HCL 30 MG CAPSULE.DR PO SCH (08:41)
[2022-11-14] MEDS: GABAPENTIN 300 MG CAPSULE PO SCH ×3 (08:41→16:47)
[2022-11-14] MEDS: SIMVASTATIN 20 MG TABLET PO SCH (08:41)
[2022-11-14] MEDS: CLOPIDOGREL BISULFATE 75 MG TABLET PO SCH (08:42)
[2022-11-14] MEDS: HYDROCHLOROTHIAZIDE 25 MG TABLET PO SCH (08:42)
[2022-11-14] MEDS: oxyCODONE HCL SR 10MG TAB.SR.12H PO SCH ×3 (08:42→21:24)
[2022-11-14] MEDS: ESCITALOPRAM OXALATE (10 MG) 10 MG TABLET PO SCH (09:21)
[2022-11-14] MEDS: IV NS 0.9% 1,000 ML IV SCH ×2 (09:24→22:36)
[2022-11-14] MEDS: ONDANSETRON HCL/PF 4 MG/2 ML VIAL IVP PRN (09:51)
[2022-11-14] MEDS: CEFTRIAXONE 1 G in IV D5W 50 ML IV SCH (10:00)
[2022-11-14] MEDS: ENOXAPARIN SODIUM 30 MG/0.3 ML DISP.SYRIN SQ SCH (10:01)
[2022-11-14] MEDS ORDERED: POTASSIUM CHLORIDE 10 MEQ TABLET.SA PO SCH (12:00)
[2022-11-14 15:59] VITALS: BP 108/69
--- NOTE | 2022-11-14 18:25 | NUR ---
MS ROSE CLOSING NOTES PATIENT AWAKE IN BED, A/O X 4. STILL ON ROOM AIR BREATHING WITHOUT ANY DIFFICULTY, NOT IN ANY DISTRESS. IV ACCESS RFA #20G WITH NS RUNNING AT 75 ML/HR, PATENT AND FLUSHING WELL. PAIN CONTROLLED. KING CATHETER PATENT AND INTACT DRAINING PAULINA URINE VIA GRAVITY. ALL DUE MEDS GIVEN, ALL NEEDS MET. SAFETY MEASURES MAINTAINED, BED ON LOWEST AND LOCKED POSITION. SIDE RAILS UP X2, TRAY TABLE AND CALL LIGHT WITHIN EASY REACH. WILL CONTINUE TO MONITOR. Addendum: 11/14/22 at 1856 by MIGUEL A DACOSTA RN WILL ENDORSE TO DIRECTOR OF CUSTOMER ACQUISITION.
--- NOTE | 2022-11-14 19:30 | NUR ---
MS RN OPENING NOTES RECEIVED PATIENT FROM AM NURSE, AWAKE IN BED, A/O X 4; STABLE ON ROOM AIR BREATHING EVENLY AND UNLABORED, NO SIGNS OF RESPIRATORY DISTRESS NOTED; WITH IV ACCESS ON RFA #20G, INTACT AND RUNNING WITH NORMAL SALINE AT 75 ML/HR; NO COMPLAINTS OF PAIN AND DISCOMFORT AT THIS TIME; WITH KING CATHETER IN PLACE DRAINING TO PAULINA COLORED URINE; SAFETY MEASURES IN PLACE; BED IN LOWEST AND LOCKED POSITION, SIDE RAILS UP X2, TRAY TABLE AND CALL LIGHT WITHIN EASY REACH. WILL CONTINUE TO MONITOR THROUGHOUT SHIFT
[2022-11-14 20:00] VITALS: BP 100/60
[2022-11-14] MEDS: TAMSULOSIN 0.4 MG CAP.SR.24H PO SCH (21:24)
[2022-11-15 01:26] VITALS: BP 100/60
--- NOTE | 2022-11-15 06:44 | NUR ---
MS RN CLOSING NOTE PATIENT IN BED, A/O X 4; STABLE ON ROOM AIR BREATHING EVENLY AND UNLABORED, NO SIGNS OF RESPIRATORY DISTRESS NOTED; WITH IV ACCESS ON RFA #20G, INTACT AND RUNNING WITH NORMAL SALINE AT 75 ML/HR; NO COMPLAINTS OF PAIN AND DISCOMFORT AT THIS TIME; WITH KING CATHETER IN PLACE DRAINING TO PAULINA COLORED URINE APPROXIMATELY 900ML; ADMINISTERED MEDICATIONS PRESCRIBED; PATIENT'S NEEDS ATTENDED; MONITORED PATIENT ACCORDINGLY; SAFETY MEASURES IN PLACE; BED IN LOWEST AND LOCKED POSITION, SIDE RAILS UP X 3, TRAY TABLE AND CALL LIGHT WITHIN EASY REACH. WILL ENDORSE TO AM NURSE FOR MARYLOU
[2022-11-15 07:00] VITALS: BP 109/57
--- NOTE | 2022-11-15 07:05 | NUR ---
MS OPENING NOTES RECEIVED PATIENT SLEEPING IN BED, A/Ox4, ABLE TO MAKE NEEDS KNOWN. ON ROOM AIR, NO S/S OF RESPIRATORY DISTRESS. IV ACCESS R FA #20G NS @75 ML/HR, INTACT AND PATENT. PATIENT HAS FC DRAINING YELLOW URINE. ON BEDREST. SKIN ISSUES: BACK SCABS. NO C/O OF PAIN OR DISCOMFORT. SAFETY MEASURES IN PLACE: BED LOCKED AND IN LOWEST POSITION, HOB ELEVATED, SIDE RAILS UPx2, AND CALL LIGHT WITHIN REACH. WILL CONTINUE TO MONITOR.
[2022-11-15 07:06] LABS: BASOPHILS # (AUTO) 0.3 K/uL (0.0-0.2); BASOPHILS % (AUTO) 0.7 % (0.0-2.0); EOSINOPHILS % (AUTO) 0.2 % (0.0-6.0); HEMATOCRIT 43 % (39-51); LYMPHOCYTES # (AUTO) 1.8 K/uL (0.8-4.8); LYMPHOCYTES % (AUTO) 4.5 % (20.0-44.0); MEAN CORPUSCULAR HGB CONC 32 g/dl (31.0-36.0); MEAN CORPUSCULAR VOLUME 93 fL (80-96); MONOCYTES # (AUTO) 3.5 K/uL (0.1-1.30); MONOCYTES % (AUTO) 8.7 % (2.0-12.0); NEUTROPHILS # (AUTO) 34.9 K/uL (1.8-8.9); NEUTROPHILS % (AUTO) 85.9 % (43.0-81.0); PLATELET COUNT (AUTO) 328 K/uL (150-450); RED BLOOD CELL COUNT(AUTO) 4.66 MIL/uL (4.5-6.0)
[2022-11-15 07:14] LABS: CALCIUM, SERUM 7.5 mg/dL (8.5-10.1); CARBON DIOXIDE 18 mmol/L (21-32); CHLORIDE 103 mmol/L (98-107); CREATININE 1.5 mg/dL (0.6-1.3); GLUCOSE 204 mg/dL (74-106); POTASSIUM 3.3 mmol/L (3.5-5.1); SODIUM SERUM 131 mmol/L (136-145); UREA NITROGEN, BLOOD 43 mg/dL (7-18)
[2022-11-15 07:17] LABS: WHITE BLOOD COUNT (AUTO) 40.7 K/uL (4.3-11.0)
[2022-11-15] MEDS: HYDROCHLOROTHIAZIDE 25 MG TABLET PO SCH (09:00)
[2022-11-15] MEDS ORDERED: POTASSIUM CHLORIDE 20 MEQ TAB.PRT.SR PO ONE (09:30)
[2022-11-15] MEDS: CLOPIDOGREL BISULFATE 75 MG TABLET PO SCH (09:37)
[2022-11-15] MEDS: SIMVASTATIN 20 MG TABLET PO SCH (09:38)
[2022-11-15] MEDS: DULOXETINE HCL 30 MG CAPSULE.DR PO SCH (09:38)
[2022-11-15] MEDS: ATENOLOL 50 MG TABLET PO SCH ×2 (09:39→16:16)
[2022-11-15] MEDS: GABAPENTIN 300 MG CAPSULE PO SCH ×3 (09:39→16:15)
[2022-11-15] MEDS: ESCITALOPRAM OXALATE (10 MG) 10 MG TABLET PO SCH (09:39)
[2022-11-15] MEDS: oxyCODONE HCL SR 10MG TAB.SR.12H PO SCH ×3 (09:40→21:07)
[2022-11-15] MEDS: CEFTRIAXONE 1 G in IV D5W 50 ML IV SCH (10:53)
[2022-11-15] MEDS: ENOXAPARIN SODIUM 30 MG/0.3 ML DISP.SYRIN SQ SCH (10:55)
[2022-11-15] MEDS: IV NS 0.9% 1,000 ML IV SCH (10:56)
[2022-11-15 13:09] LABS: BAND % (MANUAL) 4 % (0.0-5.0); LYMPHOCYTES % (MANUAL) 7 % (16-48); NEUTROPHILS % (MANUAL) 83 (42-76)
[2022-11-15 13:10] LABS: MONOCYTES % (MANUAL) 6 % (0-11.0)
[2022-11-15 16:00] VITALS: BP 103/59
--- NOTE | 2022-11-15 18:40 | NUR ---
MS RN CLOSING NOTES PATIENT SLEEPING IN BED, A/Ox4, ABLE TO MAKE NEEDS KNOWN. STABLE ON ROOM AIR, NO S/S OF RESPIRATORY DISTRESS. IV ACCESS R FA #20G NS @75 ML/HR, INTACT AND PATENT. PATIENT HAS FC DRAINING YELLOW URINE. ON BEDREST. SKIN ISSUES: BACK SCABS. NO C/O OF PAIN OR DISCOMFORT. ALL DUE MEDICATION ADMINISTERED. SAFETY MEASURES MAINTAINED: BED LOCKED AND IN LOWEST POSITION, HOB ELEVATED, SIDE RAILS UPx2, AND CALL LIGHT WITHIN REACH. WILL ENDORSE TO NEXT SHIFT ANY MARYLOU.
--- NOTE | 2022-11-15 19:35 | NUR ---
MS RN OPENING NOTE RECEIVED PATIENT FROM AM NURSE, AWAKE IN BED, ALERT AND ORIENTED X 4; STABLE ON ROOM AIR BREATHING EVENLY AND UNLABORED, NO SIGNS OF RESPIRATORY DISTRESS NOTED; WITH IV ACCESS ON RFA G#20, INTACT AND RUNNING WITH NORMAL SALINE AT 75 ML/HR; NO COMPLAINTS OF PAIN AND DISCOMFORT AT THIS TIME; WITH KING CATHETER IN PLACE DRAINING TO YELLOW COLORED URINE; SAFETY MEASURES IN PLACE; BED IN LOWEST AND LOCKED POSITION, SIDE RAILS UP X 2, TRAY TABLE AND CALL LIGHT WITHIN EASY REACH; WILL CONTINUE TO MONITOR THROUGHOUT SHIFT
[2022-11-15 20:17] VITALS: BP 108/50
[2022-11-15] MEDS: TAMSULOSIN 0.4 MG CAP.SR.24H PO SCH (21:07)
[2022-11-16] MEDS: IV NS 0.9% 1,000 ML IV SCH ×2 (00:41→16:28)
[2022-11-16 05:59] LABS: BASOPHILS # (AUTO) 0.3 K/uL (0.0-0.2); BASOPHILS % (AUTO) 0.9 % (0.0-2.0); EOSINOPHILS % (AUTO) 0.5 % (0.0-6.0); HEMATOCRIT 44 % (39-51); HEMOGLOBIN 14.5 g/dL (13.5-17.5); LYMPHOCYTES # (AUTO) 1.5 K/uL (0.8-4.8); LYMPHOCYTES % (AUTO) 3.8 % (20.0-44.0); MEAN CORPUSCULAR HGB CONC 33 g/dl (31.0-36.0); MEAN CORPUSCULAR VOLUME 92 fL (80-96); MONOCYTES # (AUTO) 3.1 K/uL (0.1-1.30); MONOCYTES % (AUTO) 7.8 % (2.0-12.0); NEUTROPHILS # (AUTO) 34.9 K/uL (1.8-8.9); PLATELET COUNT (AUTO) 410 K/uL (150-450); RED BLOOD CELL COUNT(AUTO) 4.79 MIL/uL (4.5-6.0)
[2022-11-16 06:25] LABS: CALCIUM, SERUM 8.4 mg/dL (8.5-10.1); CARBON DIOXIDE 23 mmol/L (21-32); CHLORIDE 102 mmol/L (98-107); CREATININE 1.5 mg/dL (0.6-1.3); GLUCOSE 200 mg/dL (74-106); POTASSIUM 3.6 mmol/L (3.5-5.1); SODIUM SERUM 133 mmol/L (136-145); UREA NITROGEN, BLOOD 35 mg/dL (7-18)
--- NOTE | 2022-11-16 06:42 | NUR ---
MS RN CLOSING NOTE PATIENT AWAKE IN BED, ALERT AND ORIENTED X 4; STABLE ON ROOM AIR BREATHING EVENLY AND UNLABORED, NO SIGNS OF RESPIRATORY DISTRESS NOTED; WITH IV ACCESS ON RFA G#20, INTACT AND INFUSING WITH NORMAL SALINE AT 75 ML/HR; NO COMPLAINTS OF PAIN AND DISCOMFORT AT THIS TIME; WITH KING CATHETER IN PLACE DRAINING TO YELLOW COLORED URINE APPROXIMATELY 2000ML; ADMINISTERED MEDICATIONS PRESCRIBED; PATIENT'S NEEDS ATTENDED; MONITORED PATIENT ACCORDINGLY; SAFETY MEASURES IN PLACE; BED IN LOWEST AND LOCKED POSITION, SIDE RAILS UP X 2, TRAY TABLE AND CALL LIGHT WITHIN EASY REACH; WILL ENDORSE TO AM NURSE FOR MARYLOU.
[2022-11-16 07:00] VITALS: BP 120/59
--- NOTE | 2022-11-16 07:50 | NUR ---
MS RN OPENING NOTE RECEIVED PATIENT AWAKE IN BED, ALERT AND ORIENTED X 4; STABLE ON ROOM AIR BREATHING EVENLY AND UNLABORED, NO SIGNS OF RESPIRATORY DISTRESS NOTED; WITH IV ACCESS ON RFA G#20 INTACT AND RUNNING WITH NORMAL SALINE AT 75 ML/HR; NO COMPLAINTS OF PAIN AND DISCOMFORT AT THIS TIME; WITH KING CATHETER IN PLACE DRAINING TO YELLOW COLORED URINE; SAFETY MEASURES IN PLACE; BED IN LOWEST AND LOCKED POSITION, SIDE RAILS UP X 2, TRAY TABLE AND CALL LIGHT WITHIN EASY REACH; WILL CONTINUE TO MONITOR THROUGHOUT SHIFT
[2022-11-16] MEDS: DULOXETINE HCL 30 MG CAPSULE.DR PO SCH (08:39)
[2022-11-16] MEDS: SIMVASTATIN 20 MG TABLET PO SCH (08:40)
[2022-11-16] MEDS: CLOPIDOGREL BISULFATE 75 MG TABLET PO SCH (08:40)
[2022-11-16] MEDS: oxyCODONE HCL SR 10MG TAB.SR.12H PO SCH ×3 (08:40→20:08)
[2022-11-16] MEDS: ESCITALOPRAM OXALATE (10 MG) 10 MG TABLET PO SCH (08:40)
[2022-11-16] MEDS: GABAPENTIN 300 MG CAPSULE PO SCH ×3 (08:40→17:19)
[2022-11-16] MEDS: ATENOLOL 50 MG TABLET PO SCH ×2 (08:41→17:19)
[2022-11-16] MEDS: HYDROCHLOROTHIAZIDE 25 MG TABLET PO SCH (08:58)
[2022-11-16 09:14] LABS: LYMPHOCYTES % (MANUAL) 8 % (16-48); MONOCYTES % (MANUAL) 5 % (0-11.0); NEUTROPHILS % (MANUAL) 87 (42-76)
[2022-11-16] MEDS: CEFTRIAXONE 1 G in IV D5W 50 ML IV SCH (11:36)
[2022-11-16] MEDS: ENOXAPARIN SODIUM 30 MG/0.3 ML DISP.SYRIN SQ SCH (11:37)
[2022-11-16 15:36] LABS: D-DIMER 0.58 mg/L(FEU (0.17-0.50)
[2022-11-16 16:00] VITALS: BP 110/71
--- NOTE | 2022-11-16 18:36 | NUR ---
MS RN CLOSING NOTE PATIENT AWAKE IN BED, ALERT AND ORIENTED X 4; STABLE ON ROOM AIR BREATHING EVENLY AND UNLABORED, NO SIGNS OF RESPIRATORY DISTRESS NOTED; AFEBRILE ALL THROUGHOUT THE SHIFT. WITH IV ACCESS ON RFA G#20, INTACT AND INFUSING WITH NORMAL SALINE AT 60 ML/HR; NO COMPLAINTS OF PAIN AND DISCOMFORT AT THIS TIME; WITH KING CATHETER IN PLACE DRAINING TO YELLOW COLORED URINE.; ADMINISTERED MEDICATIONS PRESCRIBED; PATIENT'S NEEDS ATTENDED; MONITORED PATIENT ACCORDINGLY; SAFETY MEASURES IN PLACE; BED IN LOWEST AND LOCKED POSITION, SIDE RAILS UP X 2, TRAY TABLE AND CALL LIGHT WITHIN EASY REACH; WILL ENDORSE TO NIGHT NURSE FOR MARYLOU.
--- NOTE | 2022-11-16 19:30 | NUR ---
MS RN OPENING NOTE RECEIVED PATIENT IN BED, WITH HOB ELEVATED, AWAKE, ALERT AND ORIENTED X4. ABLE TO COMMUNICATE NEEDS WITH THE STAFFS. AFEBRILE AND NOT IN ANY FORM OF ACUTE DISTRESS. BREATHING EVEN AND NON LABORED. WITH IV ACCESS ON RFA 20G RUNNING WITH NS AT 60ML/HR. WITH INTACT KING CATHETER DRAINING WELL WITH YELLOW URINE OUTPUT, NO HEMATURIA OR SEDIMENTS NOTED. SAFETY MEASURES IN PLACE. KEPT BED IN LOCKED AND IN LOW POSITION. SIDE RAILS UP X2. ADVISED TO USE THE CALL LIGHT WHEN IN NEED OF ASSISTANCE.
[2022-11-16 20:00] VITALS: BP 108/45
[2022-11-16] MEDS: TAMSULOSIN 0.4 MG CAP.SR.24H PO SCH (21:06)
[2022-11-16 21:20] VITALS: BP 110/48
--- NOTE | 2022-11-17 06:20 | NUR ---
MS RN CLOSING NOTE PATIENT IN BED, WITH HOB ELEVATED, ASLEEP BUT EASY TO AROUSE AND RESPONSIVE. ABLE TO COMMUNICATE NEEDS WITH THE STAFFS. AFEBRILE AND NOT IN ANY FORM OF ACUTE DISTRESS. BREATHING EVEN AND NON LABORED. WITH IV ACCESS ON RFA 20G, PATENT, RUNNING WITH NS AT 60ML/HR. WITH INTACT KING CATHETER DRAINING WELL WITH YELLOW URINE OUTPUT, NO HEMATURIA OR SEDIMENTS NOTED. MEDICATED ORDERED. ENCOURAGED TO TURN AND REPOSITION EVERY 2 HOURS AND TOLERATED TO PROMOTE PROPER CIRCULATION AND COMFORT. SAFETY MEASURES IN PLACE. KEPT BED IN LOCKED AND IN LOW POSITION. SIDE RAILS UP X2. ADVISED TO USE THE CALL LIGHT WHEN IN NEED OF ASSISTANCE. ALL NURSING NEEDS ATTENDED. ENDORSED TO INCOMING SHIFT FOR CONTINUITY OF CARE.
[2022-11-17 07:00] VITALS: BP 142/73
[2022-11-17 07:13] LABS: BASOPHILS # (AUTO) 0.1 K/uL (0.0-0.2); BASOPHILS % (AUTO) 0.3 % (0.0-2.0); EOSINOPHILS % (AUTO) 1.2 % (0.0-6.0); HEMATOCRIT 44 % (39-51); HEMOGLOBIN 14.3 g/dL (13.5-17.5); LYMPHOCYTES # (AUTO) 1.7 K/uL (0.8-4.8); MEAN CORPUSCULAR HGB CONC 32 g/dl (31.0-36.0); MEAN CORPUSCULAR VOLUME 93 fL (80-96); MONOCYTES # (AUTO) 2.5 K/uL (0.1-1.30); MONOCYTES % (AUTO) 8.9 % (2.0-12.0); NEUTROPHILS # (AUTO) 23.8 K/uL (1.8-8.9); NEUTROPHILS % (AUTO) 83.6 % (43.0-81.0); PLATELET COUNT (AUTO) 431 K/uL (150-450); RED BLOOD CELL COUNT(AUTO) 4.75 MIL/uL (4.5-6.0); WHITE BLOOD COUNT (AUTO) 28.4 K/uL (4.3-11.0)
--- NOTE | 2022-11-17 07:19 | NUR ---
MS RN OPENING NOTES RECEIVED PATIENT AWAKE IN BED IN NO ACUTE SIGNS OF DISTRESS. A/O X4, ABLE TO VERBALIZED NEEDS, DENIES PAIN OR ANY DISCOMFORTS AT THIS TIME. ON ROOM AIR, TOLERATING WELL, BREATHING EVEN AND UNLABORED. IV ACCESS ON RFA #20G INTACT WITH IVF OF NS @ 60 ML/HR INFUSING WELL, NO S/S OF INFILTRATION AT SITE NOTED. SAFETY MEASURES IN PLACE: BED IN LOWEST LOCKED POSITION, SIDE-RAILS UP X2, ADVISED TO USE THE CALL LIGHT WHEN IN NEED OF ASSISTANCE, TRAY TABLE W/I EASY REACH OF PT. WILL CONTINUE TO MONITOR PT ACCORDINGLY. Addendum: 11/17/22 at 0731 by FRANCI NEWELL RN ADDENDUM: PT WITH KING CATHETER IN PLACE AND ACTIVELY DRAINING CLEAR YELLOW COLORED URINE TO BEDSIDE URINARY BAG.
[2022-11-17 07:20] LABS: BILIRUBIN,TOTAL 0.5 mg/dL (0.2-1.0); CALCIUM, SERUM 8.2 mg/dL (8.5-10.1); CREATININE 1.3 mg/dL (0.6-1.3); POTASSIUM 3.1 mmol/L (3.5-5.1); TOTAL PROTEIN, SERUM 6.4 g/dL (6.4-8.2)
[2022-11-17 08:07] LABS: IMMUNOGLOBULIN A, SERUM 264 mg/dL (61-437); IMMUNOGLOBULIN G, SERUM 1327 mg/dL (603-1613); IMMUNOGLOBULIN M, SERUM 38 mg/dL (15-143)
[2022-11-17] MEDS ORDERED: POTASSIUM CHLORIDE 20 MEQ TAB.PRT.SR PO ONE (08:30)
[2022-11-17] MEDS: IV NS 0.9% 1,000 ML IV SCH (08:39)
[2022-11-17] MEDS: ATENOLOL 50 MG TABLET PO SCH ×2 (08:40→16:48)
[2022-11-17] MEDS: GABAPENTIN 300 MG CAPSULE PO SCH ×3 (08:40→16:46)
[2022-11-17] MEDS: DULOXETINE HCL 30 MG CAPSULE.DR PO SCH (08:41)
[2022-11-17] MEDS: ESCITALOPRAM OXALATE (10 MG) 10 MG TABLET PO SCH (08:42)
[2022-11-17] MEDS: HYDROCHLOROTHIAZIDE 25 MG TABLET PO SCH (08:42)
[2022-11-17] MEDS: CLOPIDOGREL BISULFATE 75 MG TABLET PO SCH (08:42)
[2022-11-17] MEDS: SIMVASTATIN 20 MG TABLET PO SCH (08:43)
[2022-11-17] MEDS: oxyCODONE HCL SR 10MG TAB.SR.12H PO SCH ×3 (08:44→20:02)
[2022-11-17 11:07] LABS: *ANA ANTI-CENTROMERE B AB <0.2 AI (0.0-0.9); *ANA ANTI-DNA(DS) AB, QN <1 IU/mL (0-9); *ANA ANTI-JO-1 <0.2 AI (0.0-0.9); *ANA ANTICHROMATIN ANTIBODY 2.7 AI (0.0-0.9); *ANA RNP ANTIBODIES 0.2 AI (0.0-0.9); *ANA SJOGREN'S ANTI-SS-A <0.2 AI (0.0-0.9); *ANA SJOGREN'S ANTI-SS-B <0.2 AI (0.0-0.9); *ANAANTI-SCLERODERMA-70 AB <0.2 AI (0.0-0.9); *ANASMITH AB <0.2 AI (0.0-0.9)
[2022-11-17] MEDS: CEFTRIAXONE 1 G in IV D5W 50 ML IV SCH (11:26)
[2022-11-17] MEDS: ENOXAPARIN SODIUM 30 MG/0.3 ML DISP.SYRIN SQ SCH (11:27)
--- NOTE | 2022-11-17 11:33 | NUR ---
RN NOTES PATIENT REFUSED PHYSICAL THERAPY THIS MORNING.
[2022-11-17 15:06] LABS: *SPE A/G RATIO 0.6 (0.7-1.7); *SPE ALPHA-1-GLOBULIN 0.4 g/dL (0.0-0.4); *SPE M-SPIKE Not Observed g/dL (Not Observed)
[2022-11-17 15:17] VITALS: BP 100/59
--- NOTE | 2022-11-17 18:37 | NUR ---
MS RN CLOSING NOTES PATIENT IN BED ASLEEP AT THIS TIME, EASILY AROUSABLE. A/O X4, ABLE TO MAKE NEEDS KNOWN. ON ROOM AIR, TOLERATING WELL, BREATHING EVEN AND UNLABORED. IV ACCESS ON RFA #20G INTACT WITH IVF OF NS @ 60 ML/HR INFUSING WELL, NO S/S OF INFILTRATION AT SITE NOTED. KING IN PLACE AND DRAINING CLEAR YELLOW URINE OUTPUT VIA GRAVITY, KING CARE DONE. ALL NEEDS/CARE ATTENDED WELL. SAFETY MEASURES KEPT IN PLACE: BED IN LOWEST LOCKED POSITION, SIDE-RAILS UP X2, ADVISED TO USE THE CALL LIGHT WHEN IN NEED OF ASSISTANCE, TRAY TABLE W/I EASY REACH OF PT. WILL ENDORSE MARYLOU TO NUCLEAR WEAPONS CUSTODIAN NURSE.
--- NOTE | 2022-11-17 19:27 | NUR ---
MS RN OPENING NOTE RECEIVED PATIENT IN BED, WITH HOB ELEVATED, WITH EYES CLOSED, ALERT AND ORIENTED X4. ABLE TO COMMUNICATE NEEDS WITH THE STAFFS. AFEBRILE AND NOT IN ANY FORM OF ACUTE DISTRESS. BREATHING EVEN AND NON LABORED. WITH IV ACCESS ON RFA 20G RUNNING WITH NS AT 60ML/HR. WITH INTACT KING CATHETER DRAINING WELL WITH YELLOW URINE OUTPUT, NO HEMATURIA OR SEDIMENTS NOTED. SAFETY MEASURES IN PLACE. KEPT BED IN LOCKED AND IN LOW POSITION. SIDE RAILS UP X2. ADVISED TO USE THE CALL LIGHT WHEN IN NEED OF ASSISTANCE.
[2022-11-17 20:00] VITALS: BP 105/51
[2022-11-17] MEDS: TAMSULOSIN 0.4 MG CAP.SR.24H PO SCH (21:13)
[2022-11-18 00:04] LABS: BASOPHILS % (MANUAL) 0 % (0.0-2.0); EOSINOPHILS % (MANUAL) 1 % (0-4); LYMPHOCYTES % (MANUAL) 5 % (16-48); MONOCYTES % (MANUAL) 9 % (0-11.0); NEUTROPHILS % (MANUAL) 85 (42-76)
[2022-11-18] MEDS: IV NS 0.9% 1,000 ML IV SCH ×2 (00:51→17:45)
[2022-11-18 05:51] LABS: BASOPHILS # (AUTO) 0.1 K/uL (0.0-0.2); BASOPHILS % (AUTO) 0.4 % (0.0-2.0); EOSINOPHILS % (AUTO) 1.2 % (0.0-6.0); HEMATOCRIT 42 % (39-51); HEMOGLOBIN 13.7 g/dL (13.5-17.5); LYMPHOCYTES # (AUTO) 2.2 K/uL (0.8-4.8); LYMPHOCYTES % (AUTO) 7.7 % (20.0-44.0); MEAN CORPUSCULAR HGB CONC 33 g/dl (31.0-36.0); MEAN CORPUSCULAR VOLUME 91 fL (80-96); MONOCYTES # (AUTO) 3.1 K/uL (0.1-1.30); MONOCYTES % (AUTO) 10.7 % (2.0-12.0); NEUTROPHILS # (AUTO) 23.2 K/uL (1.8-8.9); PLATELET COUNT (AUTO) 478 K/uL (150-450); RED BLOOD CELL COUNT(AUTO) 4.59 MIL/uL (4.5-6.0)
[2022-11-18 06:09] LABS: ALANINE AMINOTRANSFERASE 70 U/L (12-78); ALBUMIN 1.9 g/dL (3.4-5.0); ALKALINE PHOSPHATASE 114 U/L (46-116); ASPARTATE AMINOTRANSFERASE 33 U/L (15-37); BILIRUBIN,TOTAL 0.5 mg/dL (0.2-1.0); CALCIUM, SERUM 8.1 mg/dL (8.5-10.1); CARBON DIOXIDE 23 mmol/L (21-32); CHLORIDE 102 mmol/L (98-107); CREATININE 1.4 mg/dL (0.6-1.3); GLUCOSE 187 mg/dL (74-106); MAGNESIUM 1.4 mg/dL (1.8-2.4); PHOSPHORUS 2.6 mg/dL (2.5-4.9); SODIUM SERUM 132 mmol/L (136-145); TOTAL PROTEIN, SERUM 6.2 g/dL (6.4-8.2); UREA NITROGEN, BLOOD 22 mg/dL (7-18)
--- NOTE | 2022-11-18 06:20 | NUR ---
MR RN CLOSING NOTE PATIENT IN BED, WITH HOB ELEVATED, ASLEEP BUT EASY TO AROUSE AND RESPONSIVE. ABLE TO MAKE NEEDS KNOWN. AFEBRILE AND NOT IN ANY FORM OF ACUTE DISTRESS. BREATHING EVEN AND NON LABORED. NO SOB/WHEEZING NOTED. WITH IV ACCESS ON RFA 20G RUNNING WITH NS AT 60ML/HR. WITH INTACT KING CATHETER DRAINING WELL WITH YELLOW URINE OUTPUT, NO HEMATURIA OR SEDIMENTS NOTED. MEDICATED ORDERED. SAFETY MEASURES IN PLACE. KEPT BED IN LOCKED AND IN LOW POSITION. SIDE RAILS UP X2. ADVISED TO USE THE CALL LIGHT WHEN IN NEED OF ASSISTANCE. ALL NURSING NEEDS ATTENDED. ENDORSED TO INCOMING SHIFT FOR CONTINUITY OF CARE.
[2022-11-18 07:00] VITALS: BP 110/62
--- NOTE | 2022-11-18 07:06 | NUR ---
MS RN OPENING NOTES RECEIVED PATIENT IN BED AWAKE, A/O X4, ABLE TO MAKE NEEDS KNOWN, DENIES PAIN OR ANY DISCOMFORTS AT THIS TIME. TOLERATING ROOM AIR WELL WITH NO ACUTE RESPIRATORY DISTRESS NOTED. IV ACCESS ON RFA #20G INTACT WITH IVF OF NS @ 60 ML/HR INFUSING WELL, NO S/S OF INFILTRATION AT SITE NOTED. SAFETY MEASURES IN PLACE: BED IN LOWEST LOCKED POSITION, SIDE-RAILS UP X2, ADVISED TO USE THE CALL LIGHT WHEN IN NEED OF ASSISTANCE, TRAY TABLE W/I EASY REACH OF PT. WILL CONTINUE TO MONITOR PT.
[2022-11-18] MEDS ORDERED: POTASSIUM CHLORIDE 20 MEQ TAB.PRT.SR PO ONE (08:00)
[2022-11-18] MEDS ORDERED: MAGNESIUM OXIDE 400 MG TABLET PO SCH (08:00)
[2022-11-18] MEDS: DULOXETINE HCL 30 MG CAPSULE.DR PO SCH (08:33)
[2022-11-18] MEDS: CLOPIDOGREL BISULFATE 75 MG TABLET PO SCH (08:34)
[2022-11-18] MEDS: HYDROCHLOROTHIAZIDE 25 MG TABLET PO SCH (08:34)
[2022-11-18] MEDS: SIMVASTATIN 20 MG TABLET PO SCH (08:34)
[2022-11-18] MEDS: ESCITALOPRAM OXALATE (10 MG) 10 MG TABLET PO SCH (08:34)
[2022-11-18] MEDS: GABAPENTIN 300 MG CAPSULE PO SCH ×3 (08:34→16:21)
[2022-11-18] MEDS: ATENOLOL 50 MG TABLET PO SCH ×2 (08:39→16:21)
[2022-11-18] MEDS: oxyCODONE HCL SR 10MG TAB.SR.12H PO SCH ×3 (08:39→21:07)
[2022-11-18] MEDS: CEFTRIAXONE 1 G in IV D5W 50 ML IV SCH (11:06)
[2022-11-18] MEDS: ENOXAPARIN SODIUM 30 MG/0.3 ML DISP.SYRIN SQ SCH (11:07)
[2022-11-18 16:00] VITALS: BP 104/53
--- NOTE | 2022-11-18 18:37 | NUR ---
MS RN CLOSING NOTES PATIENT IN BED AWAKE AND RESTING AT MODERATE HIGH BACKREST POSITION. A/O X4, ABLE TO MAKE NEEDS KNOWN. TOLERATING ROOM AIR WELL, BREATHING EVEN AND UNLABORED. IV ACCESS ON RFA #20G INTACT WITH IVF OF NS @ 60 ML/HR INFUSING WELL, NO S/S OF INFILTRATION AT SITE NOTED. KING IN PLACE AND DRAINING CLEAR YELLOW URINE OUTPUT VIA GRAVITY, KING CARE DONE. ALL NEEDS/CARE ATTENDED WELL. SAFETY MEASURES KEPT IN PLACE: BED IN LOWEST LOCKED POSITION, SR UP X2, ADVISED TO USE THE CALL LIGHT WHEN IN NEED OF ASSISTANCE, TRAY TABLE W/I EASY REACH OF PT. WILL ENDORSE MARYLOU TO VINYL WELDER AND FABRICATOR NURSE.
--- NOTE | 2022-11-18 19:35 | NUR ---
MS RN OPENING NOTE RECEIVED PATIENT IN BED; AWAKE, A/O X 4. ON ROOM AIR; TOLERATING WELL. BREATHING EVEN AND UNLABORED. IN NO ACUTE DISTRESS. ABLE TO MAKE NEEDS KNOWN. DENIES ANY PAIN OR DISCOMFORT AT THIS TIME. WITH IV ACCESS ON RIGHT FOREARM 20g; PATENT AND INTACT INFUSING WITH NS 1L RUNNING @ 60 ML/HR; FLUSHES WELL. WITH KING CATH IN PLACE DRAINING BY GRAVITY TO YELLOW URINE OUTPUT. SAFETY PRECAUTIONS IMPLEMENTED: CALL LIGHT AND TABLE WITHIN REACH, SIDE RAILS UP X 3, BED IN LOWEST LOCKED POSITION. WILL CONTINUE PLAN OF CARE.
[2022-11-18 20:00] VITALS: BP 99/51
[2022-11-18 20:04] LABS: BAND % (MANUAL) 1 % (0.0-5.0); EOSINOPHILS % (MANUAL) 2 % (0-4); LYMPHOCYTES % (MANUAL) 9 % (16-48); MONOCYTES % (MANUAL) 11 % (0-11.0); NEUTROPHILS % (MANUAL) 77 (42-76)
[2022-11-18 20:49] VITALS: BP 99/51
[2022-11-18] MEDS: TAMSULOSIN 0.4 MG CAP.SR.24H PO SCH (21:07)
[2022-11-19 04:00] VITALS: BP 139/70
[2022-11-19 06:16] LABS: BASOPHILS # (AUTO) 0.3 K/uL (0.0-0.2); BASOPHILS % (AUTO) 1.3 % (0.0-2.0); HEMATOCRIT 42 % (39-51); LYMPHOCYTES # (AUTO) 2.3 K/uL (0.8-4.8); MEAN CORPUSCULAR HGB CONC 33 g/dl (31.0-36.0); MEAN CORPUSCULAR VOLUME 91 fL (80-96); MONOCYTES # (AUTO) 2.7 K/uL (0.1-1.30); MONOCYTES % (AUTO) 12.9 % (2.0-12.0); NEUTROPHILS # (AUTO) 15.5 K/uL (1.8-8.9); NEUTROPHILS % (AUTO) 72.8 % (43.0-81.0); PLATELET COUNT (AUTO) 507 K/uL (150-450); RED BLOOD CELL COUNT(AUTO) 4.66 MIL/uL (4.5-6.0); WHITE BLOOD COUNT (AUTO) 21.2 K/uL (4.3-11.0)
[2022-11-19 06:24] LABS: ALBUMIN 1.9 g/dL (3.4-5.0); BILIRUBIN,TOTAL 0.5 mg/dL (0.2-1.0); CALCIUM, SERUM 8.1 mg/dL (8.5-10.1); CREATININE 1.3 mg/dL (0.6-1.3); POTASSIUM 3.3 mmol/L (3.5-5.1); TOTAL PROTEIN, SERUM 6.2 g/dL (6.4-8.2)
--- NOTE | 2022-11-19 06:35 | NUR ---
MS RN CLOSING NOTE PATIENT IN BED; AA/O X 4. STABLE ON ROOM AIR. IN NO APPARENT DISTRESS. NO C/O ANY PAIN OR DISCOMFORT AT THIS TIME. WITH IV ACCESS ON RIGHT FOREARM 20g; INTACT AND PATENT INFUSING WITH NS 1L REGULATED @ 60 ML/HR; FLUSHES WELL. WITH KING CATH IN PLACE DRAINING BY GRAVITY TO YELLOW URINE OUTPUT. SAFETY MEASURES MAINTAINED: CALL LIGHT AND TABLE WITHIN REACH, SIDE RAILS UP X 3, BED IN LOWEST LOCKED POSITION. ENDORSED TO MORNING SHIFT FOR MARYLOU.
[2022-11-19 07:00] VITALS: BP 104/43
--- NOTE | 2022-11-19 07:30 | NUR ---
MS RN OPENING NOTES RECEIVED PATIENT ON BED RESTING AND A/O X4. ON ROOM AIR TOLERATING WELL. NO SOB NOTED. NOT IN DISTRESS. WITH NO COMPLAINTS OF PAIN OR DISCOMFORT AT THIS TIME. WITH IV ACCESS AT THE RIGHT FOREARM G20 WITH IVF RUNNING NS AT 60LM/HR INFUSING WELL. WITH KING CATHETER IN PLACED DRAINING CLEAR YELLOW URINE. SAFETY MEASURES IN PLACED. CALL LIGHT WITHIN REACH. BED ON LOWEST LOCKED POSITION, SIDE RAILS UP X2. WILL CONTINUE TO MONITOR.
[2022-11-19] MEDS: ATENOLOL 50 MG TABLET PO SCH ×2 (09:00→17:20)
[2022-11-19] MEDS: HYDROCHLOROTHIAZIDE 25 MG TABLET PO SCH (09:00)
[2022-11-19] MEDS ORDERED: POTASSIUM CHLORIDE 20 MEQ TAB.PRT.SR PO ONE (09:00)
[2022-11-19] MEDS: SIMVASTATIN 20 MG TABLET PO SCH (09:44)
[2022-11-19] MEDS: CLOPIDOGREL BISULFATE 75 MG TABLET PO SCH (09:45)
[2022-11-19] MEDS: DULOXETINE HCL 30 MG CAPSULE.DR PO SCH (09:45)
[2022-11-19] MEDS: oxyCODONE HCL SR 10MG TAB.SR.12H PO SCH ×3 (09:45→21:31)
[2022-11-19] MEDS: ESCITALOPRAM OXALATE (10 MG) 10 MG TABLET PO SCH (09:45)
[2022-11-19] MEDS: GABAPENTIN 300 MG CAPSULE PO SCH ×3 (09:46→17:20)
[2022-11-19] MEDS: IV NS 0.9% 1,000 ML IV SCH (11:27)
[2022-11-19] MEDS: ENOXAPARIN SODIUM 30 MG/0.3 ML DISP.SYRIN SQ SCH (11:31)
[2022-11-19] MEDS: CEFTRIAXONE 1 G in IV D5W 50 ML IV SCH (11:32)
[2022-11-19 16:00] VITALS: BP 117/50
--- NOTE | 2022-11-19 18:42 | NUR ---
MS RN CLOSING NOTES PATIENT ON BED RESTING AND A/O X4. ON ROOM AIR TOLERATING WELL. NO SOB NOTED. NOT IN DISTRESS. WITH NO COMPLAINTS OF PAIN OR DISCOMFORT AT THIS TIME. WITH IV ACCESS AT THE RIGHT FOREARM G20 WITH IVF RUNNING NS AT 60LM/HR INFUSING WELL. WITH KING CATHETER IN PLACED DRAINING CLEAR YELLOW URINE. DUE MEDS GIVEN. ABLE TO SWALLOW WHOLE PILLS. SAFETY MEASURES IN PLACED. CALL LIGHT WITHIN REACH. BED ON LOWEST LOCKED POSITION, SIDE RAILS UP X2. WILL ENDORSE TO NEXT SHIFT FOR MARYLOU.
--- NOTE | 2022-11-19 19:30 | NUR ---
RN Opening Notes Received pt in bed, asleep, awakens to verbal stimuli. AOx4, able to make needs known. On RA and tolerating well. No SOB noted. No s/sx of respiratory distress noted. IV Access in RFA #20G running NS @ 60 mL/hr. Safety precautions in place: bed in lowest, locked position, siderails upX2, and brakes on. Table and call light within reach. All needs met at this time.
[2022-11-19 20:00] VITALS: BP 115/69
[2022-11-19 20:19] LABS: EOSINOPHILS % (MANUAL) 4 % (0-4); LYMPHOCYTES % (MANUAL) 13 % (16-48); MONOCYTES % (MANUAL) 10 % (0-11.0); NEUTROPHILS % (MANUAL) 73 (42-76)
[2022-11-19] MEDS: TAMSULOSIN 0.4 MG CAP.SR.24H PO SCH (21:31)
[2022-11-19] MEDS: ENOXAPARIN SODIUM 40 MG/0.4 ML DISP.SYRIN SQ SCH (21:33)
[2022-11-20] MEDS: IV NS 0.9% 1,000 ML IV SCH ×2 (03:54→19:40)
[2022-11-20 06:26] LABS: BASOPHILS # (AUTO) 0.1 K/uL (0.0-0.2); BASOPHILS % (AUTO) 0.4 % (0.0-2.0); EOSINOPHILS % (AUTO) 1.7 % (0.0-6.0); HEMATOCRIT 44 % (39-51); HEMOGLOBIN 14.1 g/dL (13.5-17.5); LYMPHOCYTES # (AUTO) 2.4 K/uL (0.8-4.8); MEAN CORPUSCULAR HGB CONC 32 g/dl (31.0-36.0); MEAN CORPUSCULAR VOLUME 92 fL (80-96); MONOCYTES # (AUTO) 2.7 K/uL (0.1-1.30); MONOCYTES % (AUTO) 12.1 % (2.0-12.0); NEUTROPHILS # (AUTO) 16.4 K/uL (1.8-8.9); NEUTROPHILS % (AUTO) 74.8 % (43.0-81.0); PLATELET COUNT (AUTO) 564 K/uL (150-450); RED BLOOD CELL COUNT(AUTO) 4.74 MIL/uL (4.5-6.0)
[2022-11-20 06:33] LABS: D-DIMER 0.63 mg/L(FEU (0.17-0.50)
[2022-11-20 06:50] LABS: ALBUMIN 1.9 g/dL (3.4-5.0); BILIRUBIN,TOTAL 0.4 mg/dL (0.2-1.0); CALCIUM, SERUM 8.3 mg/dL (8.5-10.1); CREATININE 1.2 mg/dL (0.6-1.3); POTASSIUM 3.7 mmol/L (3.5-5.1); TOTAL PROTEIN, SERUM 6.4 g/dL (6.4-8.2)
--- NOTE | 2022-11-20 07:00 | NUR ---
RN Opening Notes Pt in bed, asleep, awakens to verbal stimuli. AOx4, able to make needs known. On RA and tolerating well. No SOB noted. No s/sx of respiratory distress noted. IV Access in RFA #20G running NS @ 60 mL/hr. All orders carried out. All needs met. Pt kept clean and dry. Safety precautions in place: bed in lowest, locked position, siderails upX2, and brakes on. Table and call light within reach. Will endorse to oncoming shift for MARYLOU.
--- NOTE | 2022-11-20 07:20 | NUR ---
MS RN OPENING NOTE RECEIVED PATIENT IN BED ASLEEP BUT EASILY WOKEN UP. PATIENT IS ALERT AND ORIENTED X 4. ON ROOM AIR WITH EQUAL AND UNLABORED BREATHING WITH NO SIGNS OF RESPIRATORY DISTRESS. DENIES ANY PAIN OR DISCOMFORT AT THIS TIME. WITH IV ACCESS ON RIGHT FOREARM G20 WITH IVF OF NS RUNNING AT 60ML/HR INFUSING WELL. WITH KING CATHETER TO URINE BAG DRAINING LIGHT YELLOW URINE VIA GRAVITY. SAFETY PRECAUTIONS IN PLACE WITH SIDERAILS RAISED, BED IN LOWEST LOCKED POSITION, ALARM ON. CALL LIGHT WITHIN REACH AT ALL TIMES. WILL CONTINUE WITH PLAN OF CARE.
[2022-11-20 08:24] VITALS: BP 112/52
[2022-11-20] MEDS: oxyCODONE HCL SR 10MG TAB.SR.12H PO SCH ×3 (08:57→17:19)
[2022-11-20] MEDS: DULOXETINE HCL 30 MG CAPSULE.DR PO SCH (08:57)
[2022-11-20] MEDS: GABAPENTIN 300 MG CAPSULE PO SCH ×3 (08:57→17:18)
[2022-11-20] MEDS: ESCITALOPRAM OXALATE (10 MG) 10 MG TABLET PO SCH (08:58)
[2022-11-20] MEDS: HYDROCHLOROTHIAZIDE 25 MG TABLET PO SCH (08:58)
[2022-11-20] MEDS: CLOPIDOGREL BISULFATE 75 MG TABLET PO SCH (08:59)
[2022-11-20] MEDS: ATENOLOL 50 MG TABLET PO SCH ×2 (08:59→17:19)
[2022-11-20] MEDS: SIMVASTATIN 20 MG TABLET PO SCH (08:59)
[2022-11-20] MEDS ORDERED: NEPRO VAN 237 ML CAN PO PRN (11:00)
[2022-11-20] MEDS: CEFTRIAXONE 1 G in IV D5W 50 ML IV SCH (11:09)
[2022-11-20] MEDS ORDERED: oxyCODONE HCL SR 10MG TAB.SR.12H PO SCH (12:40)
[2022-11-20 13:40] LABS: BAND % (MANUAL) 2 % (0.0-5.0); BASOPHILS % (MANUAL) 0 % (0.0-2.0); EOSINOPHILS % (MANUAL) 3 % (0-4); LYMPHOCYTES % (MANUAL) 10 % (16-48); MONOCYTES % (MANUAL) 13 % (0-11.0); NEUTROPHILS % (MANUAL) 72 (42-76)
[2022-11-20 16:21] VITALS: BP_SYST 112; BP_SYST 120; BP_DIAS 52; BP_DIAS 62
--- NOTE | 2022-11-20 18:58 | NUR ---
MS RN CLOSING NOTE PATIENT IS ALERT AND ORIENTED X 4. ON ROOM AIR WITH EQUAL AND UNLABORED BREATHING WITH NO SIGNS OF RESPIRATORY DISTRESS. DENIES ANY PAIN OR DISCOMFORT AT THIS TIME. WITH IV ACCESS ON RIGHT FOREARM G20 WITH IVF OF NS RUNNING AT 60ML/HR INFUSING WELL. WITH KING CATHETER TO URINE BAG DRAINING LIGHT YELLOW URINE VIA GRAVITY. SAFETY PRECAUTIONS IN PLACE WITH SIDERAILS RAISED, BED IN LOWEST LOCKED POSITION, ALARM ON. CALL LIGHT WITHIN REACH AT ALL TIMES. WILL ENDORSE TO NEXT SHIFT FOR CONTINUITY OF CARE.
[2022-11-20 20:00] VITALS: BP 101/58
[2022-11-20] MEDS: TAMSULOSIN 0.4 MG CAP.SR.24H PO SCH (21:28)
[2022-11-20] MEDS: ENOXAPARIN SODIUM 40 MG/0.4 ML DISP.SYRIN SQ SCH (21:29)
[2022-11-21] MEDS: oxyCODONE HCL SR 10MG TAB.SR.12H PO SCH ×3 (01:29→16:58)
--- NOTE | 2022-11-21 01:30 | NUR ---
RN Notes Administered oxycontin for chronic pain per MD order. VS WNL.
[2022-11-21 06:50] LABS: BASOPHILS # (AUTO) 0.1 K/uL (0.0-0.2); BASOPHILS % (AUTO) 0.8 % (0.0-2.0); EOSINOPHILS % (AUTO) 2.1 % (0.0-6.0); HEMATOCRIT 42 % (39-51); LYMPHOCYTES # (AUTO) 2.9 K/uL (0.8-4.8); LYMPHOCYTES % (AUTO) 16.3 % (20.0-44.0); MEAN CORPUSCULAR HGB CONC 33 g/dl (31.0-36.0); MEAN CORPUSCULAR VOLUME 92 fL (80-96); MONOCYTES # (AUTO) 1.8 K/uL (0.1-1.30); MONOCYTES % (AUTO) 10.1 % (2.0-12.0); NEUTROPHILS # (AUTO) 12.7 K/uL (1.8-8.9); NEUTROPHILS % (AUTO) 70.7 % (43.0-81.0); PLATELET COUNT (AUTO) 597 K/uL (150-450); RED BLOOD CELL COUNT(AUTO) 4.64 MIL/uL (4.5-6.0)
[2022-11-21 07:06] LABS: D-DIMER 0.49 mg/L(FEU (0.17-0.50)
[2022-11-21 07:20] LABS: CALCIUM, SERUM 8.1 mg/dL (8.5-10.1); CREATININE 1.1 mg/dL (0.6-1.3); POTASSIUM 3.1 mmol/L (3.5-5.1)
--- NOTE | 2022-11-21 07:25 | NUR ---
RN OPENING NOTE RECEIVED PATIENT IN BED AWAKE, A/O X4, VERBALLY RESPONSIVE, NO SIGNS OF ACUTE DISTRESS NOTED. ON ROOM AIR, TOLERATING WELL. BREATHING EVEN AND UNLABORED. NOTED WITH IV ACCESS ON RIGHT FOREARM #20G, INTACT AND PATENT WITH NS @60ML/HR RUNNING. WITH F/C DRAINING PAULINA COLORED URINE VIA GRAVITY. NO C/O PAIN AT THIS TIME. SAFETY MEASURE IN PLACE. BED IN LOW AND LOCKED POSITION, SIDE RAILS UP X2, CALL LIGHT PLACED WITHIN EASY REACH. WILL CONTINUE TO MONITOR PATIENT.
[2022-11-21] MEDS ORDERED: POTASSIUM CHLORIDE 20 MEQ TAB.PRT.SR PO ONE (08:00)
--- NOTE | 2022-11-21 08:00 | NUR ---
RN NOTE RECEIVED ORDER FROM DR. BUSBY TO REMOVE F/C AND CHECK FOR URINARY RETENTION. F/C REMOVED, PT TOLERATED PROCEDURE. WILL CONTINUE TO MONITOR PATIENT FOR S/SX OF URINARY RETENTION.
[2022-11-21 08:06] VITALS: BP 119/48
[2022-11-21 08:19] LABS: BAND % (MANUAL) 2 % (0.0-5.0); EOSINOPHILS % (MANUAL) 4 % (0-4); LYMPHOCYTES % (MANUAL) 12 % (16-48); MONOCYTES % (MANUAL) 6 % (0-11.0); MYELOCYTES % 1 % (0-0); NEUTROPHILS % (MANUAL) 73 (42-76); REACTIVE LYMPHOCYTES 2 % (0-0)
[2022-11-21] MEDS: GABAPENTIN 300 MG CAPSULE PO SCH ×3 (08:22→16:58)
[2022-11-21] MEDS: CLOPIDOGREL BISULFATE 75 MG TABLET PO SCH (08:23)
[2022-11-21] MEDS: DULOXETINE HCL 30 MG CAPSULE.DR PO SCH (08:23)
[2022-11-21] MEDS: SIMVASTATIN 20 MG TABLET PO SCH (08:23)
[2022-11-21] MEDS: ESCITALOPRAM OXALATE (10 MG) 10 MG TABLET PO SCH (08:23)
[2022-11-21] MEDS: ATENOLOL 50 MG TABLET PO SCH ×2 (08:24→16:58)
[2022-11-21] MEDS: HYDROCHLOROTHIAZIDE 25 MG TABLET PO SCH (08:24)
[2022-11-21] MEDS: ACETAMINOPHEN 325 MG TABLET PO PRN ×2 (11:44→20:15)
[2022-11-21] MEDS: IV NS 0.9% 1,000 ML IV SCH (12:54)
[2022-11-21 16:16] VITALS: BP 102/54
[2022-11-21 17:09] LABS: IRON, SERUM 31 ug/dl (50-175); TOTAL IRON BINDING CAPACITY 126 ug/dl (250-450)
[2022-11-21 17:33] LABS: FERRITIN 630 ng/mL (8-388)
--- NOTE | 2022-11-21 18:46 | NUR ---
RN CLOSING NOTE PATIENT IN BED AWAKE, A/O X4, VERBALLY RESPONSIVE, NO SIGNS OF ACUTE DISTRESS NOTED. REMAINS STABLE ON ROOM AIR, DENIES SOB, BREATHING EVEN AND UNLABORED. WITH IV ACCESS ON RIGHT FOREARM #20G, INTACT AND PATENT WITH NS @60ML/HR RUNNING. WITH F/C DRAINING PAULINA COLORED URINE VIA GRAVITY. NO C/O PAIN AT THIS TIME. ALL DUE MEDS GIVEN, TAKEN WELL. SAFETY MEASURE MAINTAINED. BED IN LOW AND LOCKED POSITION, SIDE RAILS UP X2, CALL LIGHT PLACED WITHIN EASY REACH. WILL ENDORSE TO NEXT SHIFT FOR CONTINUITY OF CARE.
--- NOTE | 2022-11-21 19:35 | NUR ---
MS RN OPENING NOTE PATIENT AWAKE IN BED, ALERT/ORIENTED X 4, PT ABLE TO MAKE NEEDS KNOWN. PATIENT STABLE ON RA, NO S/S OF DISTRESS OR SOB NOTED, BREATHING EVEN AND UNLABORED. IV ACCESS ON RFA #20G INTACT AND INFUSING NS @ 60 ML/HR. KING CATHETER IN PLACE AND DRAINING YELLOW URINE BY GRAVITY. PATIENT C/O OF ARTHRITIS PAIN IN HANDS, REQUESTED TYLENOL, WILL ADMINISTER ORDERED. SAFETY MEASURES IN PLACE: CALL LIGHT WITHIN REACH, SIDE RAILS UP X 2, BED LOCKED IN LOWEST POSITION, BED ALARM ON. WILL CONTINUE TO MONITOR PATIENT
[2022-11-21 20:00] VITALS: BP 109/63
[2022-11-21] MEDS: TAMSULOSIN 0.4 MG CAP.SR.24H PO SCH (21:49)
[2022-11-21] MEDS: ENOXAPARIN SODIUM 40 MG/0.4 ML DISP.SYRIN SQ SCH (21:56)
[2022-11-22] MEDS: oxyCODONE HCL SR 10MG TAB.SR.12H PO SCH ×3 (01:17→16:06)
[2022-11-22] MEDS: IV NS 0.9% 1,000 ML IV SCH ×2 (04:53→22:31)
--- NOTE | 2022-11-22 06:35 | NUR ---
MS RN CLOSING NOTE PATIENT SLEEPING IN BED, EASILY AWAKENED, ALERT/ORIENTED X 4, PT ABLE TO MAKE NEEDS KNOWN. PATIENT STABLE ON RA, NO S/S OF DISTRESS OR SOB NOTED, BREATHING EVEN AND UNLABORED. IV ACCESS ON RFA #20G INTACT AND INFUSING NS @ 60 ML/HR. KING CATHETER IN PLACE AND DRAINING YELLOW URINE BY GRAVITY, 750 ML OUTPUT. PATIENT HAD 3 EPISODES OF SEMI-LOOSE/MUSHY BM THIS SHIFT. MEDICATIONS GIVEN ORDERED, PT NEEDS MET THROUGHOUT SHIFT. SAFETY MEASURES IN PLACE: CALL LIGHT WITHIN REACH, SIDE RAILS UP X 2, BED LOCKED IN LOWEST POSITION, BED ALARM ON. WILL ENDORSE TO DAYSHIFT RN FOR CONTINUITY OF CARE
[2022-11-22 07:27] LABS: BASOPHILS # (AUTO) 0.2 K/uL (0.0-0.2); BASOPHILS % (AUTO) 1.2 % (0.0-2.0); EOSINOPHILS % (AUTO) 2.2 % (0.0-6.0); HEMATOCRIT 43 % (39-51); LYMPHOCYTES # (AUTO) 2.7 K/uL (0.8-4.8); LYMPHOCYTES % (AUTO) 14.9 % (20.0-44.0); MEAN CORPUSCULAR HGB CONC 33 g/dl (31.0-36.0); MEAN CORPUSCULAR VOLUME 92 fL (80-96); MONOCYTES # (AUTO) 1.7 K/uL (0.1-1.30); MONOCYTES % (AUTO) 9.4 % (2.0-12.0); NEUTROPHILS % (AUTO) 72.3 % (43.0-81.0); PLATELET COUNT (AUTO) 639 K/uL (150-450); RED BLOOD CELL COUNT(AUTO) 4.69 MIL/uL (4.5-6.0)
[2022-11-22 07:28] LABS: CALCIUM, SERUM 8.1 mg/dL (8.5-10.1); CARBON DIOXIDE 22 mmol/L (21-32); CHLORIDE 104 mmol/L (98-107); CREATININE 1.1 mg/dL (0.6-1.3); GLUCOSE 158 mg/dL (74-106); POTASSIUM 3.4 mmol/L (3.5-5.1); SODIUM SERUM 134 mmol/L (136-145); UREA NITROGEN, BLOOD 14 mg/dL (7-18)
--- NOTE | 2022-11-22 07:48 | NUR ---
RN OPENING NOTE- PATIENT ASLEEP, EASILY AWAKENED, ALERT/ORIENTED X 4, PT ABLE TO MAKE NEEDS KNOWN. PATIENT STABLE ON RA, IV ACCESS ON RFA #20G INTACT AND INFUSING NS @ 60 ML/HR. KING CATHETER IN PLACE AND DRAINING YELLOW URINE TO GRAVITY. SAFETY MEASURES IN PLACE: CALL LIGHT WITHIN REACH, SIDE RAILS . MONITOR / ASSIST
[2022-11-22 08:00] VITALS: BP 122/53
[2022-11-22] MEDS: DULOXETINE HCL 30 MG CAPSULE.DR PO SCH (08:16)
[2022-11-22] MEDS: HYDROCHLOROTHIAZIDE 25 MG TABLET PO SCH (08:16)
[2022-11-22] MEDS: GABAPENTIN 300 MG CAPSULE PO SCH ×3 (08:16→16:05)
[2022-11-22] MEDS: ESCITALOPRAM OXALATE (10 MG) 10 MG TABLET PO SCH (08:16)
[2022-11-22] MEDS: CLOPIDOGREL BISULFATE 75 MG TABLET PO SCH (08:16)
[2022-11-22] MEDS: SIMVASTATIN 20 MG TABLET PO SCH (08:16)
[2022-11-22] MEDS: ATENOLOL 50 MG TABLET PO SCH ×2 (08:17→16:05)
[2022-11-22 11:30] VITALS: BP 139/70
[2022-11-22] MEDS ORDERED: POTASSIUM CHLORIDE 20 MEQ TAB.PRT.SR PO SCH (12:00)
[2022-11-22] MEDS ORDERED: LIDOCAINE 1% INJ 50 ML MDV IJ ONE (13:00)
[2022-11-22 16:00] VITALS: BP 112/67
[2022-11-22] MEDS ORDERED: MORPHINE SULFATE INJ 2 MG/ML DISP.SYRIN IV STA (17:58)
[2022-11-22] MEDS ORDERED: LORAZEPAM 1 MG TABLET PO STA (17:58)
--- NOTE | 2022-11-22 19:08 | NUR ---
RN CLOSING NOTE- BONE MARROW BIOPSY COMPLETED W DR WHALEN. KIT SENT TO LAB. DRESSING TO ISCHIUM. TOLERATED WELL. ALERT/ORIENTED X 4, PT ABLE TO MAKE NEEDS KNOWN. PATIENT STABLE ON RA, IV ACCESS ON RFA #20G INTACT AND INFUSING NS @ 60 ML/HR. KING CATHETER IN PLACE AND DRAINING YELLOW URINE TO GRAVITY. SAFETY MEASURES IN PLACE: CALL LIGHT WITHIN REACH, SIDE RAILS . MONITOR / ASSIST
[2022-11-22 19:52] LABS: BASOPHILS # (AUTO) 0.1 K/uL (0.0-0.2); BASOPHILS % (AUTO) 0.7 % (0.0-2.0); EOSINOPHILS % (AUTO) 1.7 % (0.0-6.0); HEMATOCRIT 42 % (39-51); HEMOGLOBIN 13.9 g/dL (13.5-17.5); LYMPHOCYTES # (AUTO) 3.7 K/uL (0.8-4.8); LYMPHOCYTES % (AUTO) 19.5 % (20.0-44.0); MEAN CORPUSCULAR HGB CONC 33 g/dl (31.0-36.0); MEAN CORPUSCULAR VOLUME 91 fL (80-96); MONOCYTES # (AUTO) 1.5 K/uL (0.1-1.30); MONOCYTES % (AUTO) 7.9 % (2.0-12.0); NEUTROPHILS # (AUTO) 13.2 K/uL (1.8-8.9); NEUTROPHILS % (AUTO) 70.2 % (43.0-81.0); PLATELET COUNT (AUTO) 632 K/uL (150-450); RED BLOOD CELL COUNT(AUTO) 4.61 MIL/uL (4.5-6.0); WHITE BLOOD COUNT (AUTO) 18.8 K/uL (4.3-11.0)
--- NOTE | 2022-11-22 19:55 | NUR ---
MS RN OPENING NOTES RECEIVED PATIENT IN BED SLEEPING COMFORTABLY. AWAKENS TO VERBAL STIMULI. A/O X 4. NO S/S OF PAIN NOTED AT THIS TIME. ON RA, BREATHING EVEN AND UNLABORED, NO DISTRESS OR SOB NOTED. IV ACCESS RFA #20G NS # 60ML/HR, INFUSING WELL. PATIENT HAVE A KING CATHETER IN PLACE AND DRAINING YELLOW COLORED URINE. SAFETY MEASURES IN PLACE, BED ALARM ON, BED IN LOW AND LOCK POSITION. CALL LIGHT AND TABLE WITHIN EASY REACH. SIDE RAILS UP X 2. WILL CONTINUE WITH THE PLAN OF CARE.
[2022-11-22 20:00] VITALS: BP 111/56
[2022-11-22] MEDS: TAMSULOSIN 0.4 MG CAP.SR.24H PO SCH (22:23)
[2022-11-22] MEDS: ENOXAPARIN SODIUM 40 MG/0.4 ML DISP.SYRIN SQ SCH (22:24)
[2022-11-23] MEDS: oxyCODONE HCL SR 10MG TAB.SR.12H PO SCH ×2 (01:59→08:27)
--- NOTE | 2022-11-23 06:54 | NUR ---
MS RN CLOSING NOTES PATIENT IN BED SLEEPING COMFORTABLY. AWAKENS TO VERBAL STIMULI. A/O X 4. NO S/S OF PAIN NOTED AT THIS TIME. ON RA, BREATHING EVEN AND UNLABORED, NO DISTRESS OR SOB NOTED. IV ACCESS RFA #20G NS # 60ML/HR, INFUSING WELL. PATIENT HAVE A KING CATHETER IN PLACE AND DRAINED 700 CC YELLOW COLORED URINE. ALL DUE MEDS GIVEN. SAFETY MEASURES IN PLACE, BED ALARM ON, BED IN LOW AND LOCK POSITION. CALL LIGHT AND TABLE WITHIN EASY REACH. SIDE RAILS UP X 2. WILL ENDORSE TO THE NEXT SHIFT.
--- NOTE | 2022-11-23 07:10 | NUR ---
MS RN OPENING NOTES RECEIVED PATIENT IN BED WITH HOB ELAVATED, PT IS AWAKE, A/O X 4. BREATHING WITHOUT DIFFICULTY ON ROOM AIR. NOT IN ANY ACUTE DISTRESS NOTED. PAIN IS CONTROLLED AT THIS TIME PER PATIENT. IV ACCESS RFA 20G# WITH NS INFUSING WELL AT 60ML/HR, PATENT WITH NO SIGNS OF INFILTRATION. WITH KING CATHETER DRAINING LIGHT YELLOW URINE VIA GRAVITY WITH NO SEDIMENTS OR MUCOUS NOTED. SAFETY MEASURES IN PLACE, BED ALARM ON, BED IN LOWEST AND LOCKED POSITION. SIDE RAILS UP 2X, CALL LIGHT AND TRAY TABLE WITHIN EASY REACH. WILL MONITOR THROUGHOUT MY SHIFT.
[2022-11-23 08:00] VITALS: BP 115/61
[2022-11-23] MEDS: CLOPIDOGREL BISULFATE 75 MG TABLET PO SCH (08:27)
[2022-11-23] MEDS: SIMVASTATIN 20 MG TABLET PO SCH (08:28)
[2022-11-23] MEDS: DULOXETINE HCL 30 MG CAPSULE.DR PO SCH (08:28)
[2022-11-23] MEDS: GABAPENTIN 300 MG CAPSULE PO SCH ×2 (08:29→13:24)
[2022-11-23] MEDS: HYDROCHLOROTHIAZIDE 25 MG TABLET PO SCH (08:30)
[2022-11-23] MEDS: ESCITALOPRAM OXALATE (10 MG) 10 MG TABLET PO SCH (08:30)
[2022-11-23 08:36] VITALS: BP 115/61
[2022-11-23] MEDS: ATENOLOL 50 MG TABLET PO SCH (08:36)
[2022-11-23 10:39] LABS: BASOPHILS # (AUTO) 0.2 K/uL (0.0-0.2); EOSINOPHILS % (AUTO) 1.6 % (0.0-6.0); HEMATOCRIT 46 % (39-51); HEMOGLOBIN 14.6 g/dL (13.5-17.5); LYMPHOCYTES # (AUTO) 2.6 K/uL (0.8-4.8); LYMPHOCYTES % (AUTO) 15.7 % (20.0-44.0); MEAN CORPUSCULAR HGB CONC 32 g/dl (31.0-36.0); MEAN CORPUSCULAR VOLUME 93 fL (80-96); MONOCYTES # (AUTO) 1.3 K/uL (0.1-1.30); NEUTROPHILS % (AUTO) 73.7 % (43.0-81.0); PLATELET COUNT (AUTO) 613 K/uL (150-450); RED BLOOD CELL COUNT(AUTO) 4.89 MIL/uL (4.5-6.0); WHITE BLOOD COUNT (AUTO) 16.3 K/uL (4.3-11.0)
--- NOTE | 2022-11-23 10:45 | NUR ---
RN NOTES - PT WAS ABLE TO TOLERATE PT EXERCISES WELL TODAY
--- NOTE | 2022-11-23 14:05 | NUR ---
RN MS DISCHARGE NOTE PT DISCHARGED TO [facility] IN STABLE CONDITION. PATIENT AOX4, ABLE TO MAKE NEEDS KNOWN, ON ROOM AIR BREATHING WITHOUT DIFFICULTY. NO SOB NOTED, NOT IN ANY SIGNS OF RESPIRATORY DISTRESS. VITAL SIGNS TAKEN, STABLE AND RECORDED, PT'S SKIN IS INTACT - SCABBING ON THE BACK AND BIOPSY SITE NOT BLEEDING. DENIES PAIN NOR DISCOMFORT. ALL BELONGINGS ACCOUNTED FOR AND FORM SIGNED BY PATIENT. DISCHARGE INSTRUCTIONS GIVEN TO RN RUFUS, MED RECON INCLUDED, COVID TEST RESULT INCLUDED WELL. IV ACCESS ON RFA REMOVED, PRESSURE GAUZE APPLIED, NO BLEEDING NOTED. PATIENT WILL BE LEAVING WITH KING CATHETER ON, DRAINED ABOUT 400 ML OF URINE BEFORE TRANSFERRING. PT LEFT THE UNIT AT 1400 VIA GURNEY ACCOMPANIED BY 2 PROFESSIONAL NURSE. MD AND CHARGE NURSE AWARE OF THE DC.
[2022-11-23] MEDS: IV NS 0.9% 1,000 ML IV SCH (14:11)
== END 2022-11-23 14:15 | DRG 698 ==
LOC: ER 23:22 → MED 11-07 08:27
PROVIDERS: ADMIT Internal Medicine; ATTEND Internal Medicine
PROC: 07DR3ZX Extraction of Iliac Bone Marrow, Percutaneous Approach, Diagnostic (ICD-10-PCS; principal; 2022-11-22)
DX: N13.9 Obstructive and reflux uropathy, unspecified (principal); N17.0 Acute kidney failure with tubular necrosis; E87.1 Hypo-osmolality and hyponatremia; N39.0 Urinary tract infection, site not specified; M54.16 Radiculopathy, lumbar region; I25.10 Atherosclerotic heart disease of native coronary artery without angina pectoris; B96.20 Unspecified Escherichia coli [E. coli] as the cause of diseases classified elsewhere; D72.821 Monocytosis (symptomatic); Z20.822 Contact with and (suspected) exposure to COVID-19; E11.9 Type 2 diabetes mellitus without complications; E78.5 Hyperlipidemia, unspecified; E83.42 Hypomagnesemia; D75.839 Thrombocytosis, unspecified; E88.09 Other disorders of plasma-protein metabolism, not elsewhere classified; I10 Essential (primary) hypertension; Z79.891 Long term (current) use of opiate analgesic; Z87.891 Personal history of nicotine dependence; Z95.1 Presence of aortocoronary bypass graft; E87.6 Hypokalemia; G62.9 Polyneuropathy, unspecified; G89.29 Other chronic pain; I25.2 Old myocardial infarction; R74.01 Elevation of levels of liver transaminase levels; E80.6 Other disorders of bilirubin metabolism; K59.09 Other constipation; F32.A Depression, unspecified; F41.9 Anxiety disorder, unspecified; Z79.84 Long term (current) use of oral hypoglycemic drugs; N20.0 Calculus of kidney
CPT/HCPCS: 36415; 76770-TC; 80048-TC; 80053-TC; 80076-TC; 81001; 82728-TC; 82784; 82962-TC; 83540-TC; 83690-TC; 83735-TC; 84100-TC; 84155; 84165; 85025-TC; 85396; 86140-TC; 86225; 86235; 86334; 86431-TC; 86704; 86706; 86803; 87040-TC; 87081-TC; 87086-TC; 87340; 97112-TC; 97116-TC; 97530-TC; A4223; C9803; G0378; J0696; J1650; J2270; J2405; J3490; J7030; J7060